=== PATIENT | male | born 1955 | race Caucasian/White ===

== ENCOUNTER → 2016-04-28 | Day surgery (SDC) | payer OTHER ==
[~2016-04-28] MED LIST: LIDOCAINE 2% 5 ML SDV ONE; MIDAZOLAM 2 MG/2 ML VIAL ONE; PROPOFOL 200 MG/20 ML VIAL ONE; PROPOFOL/EMULSION 500 MG/50 ML BOTTLE IV ONE
--- NOTE | 2016-04-28 21:33 | GPN ---
[f rep st] PROCEDURE NOTE DATE OF PROCEDURE: 04/28/2016 PROCEDURE: Esophagogastroduodenoscopy with biopsy, endoscopic ultrasound with fine-needle aspiration. INDICATION: The patient is a 60-year-old male who presents for evaluation of a enlarging gastric, subepithelial lesion. He presents for further evaluation and possible tissue acquisition. CONSENT: Risks, benefits, and alternatives of the procedure were discussed in great detail with the patient. Risk of infection, bleeding, perforation, and sedation were discussed. All questions were answered. Informed consent was obtained. MEDICATIONS: Propofol. Please see Anesthesiology record for details. ESTIMATED BLOOD LOSS: Insignificant. ESOPHAGOGASTROSCOPY EXAMINATION: The Olympus upper endoscope was introduced via the mouth and advanced to the esophagus. The proximal, mid, and distal esophagus were normal in appearance. The GE junction was noted at 45cms from the gums. The stomach was entered and closely examined including retroflexed views of the angularis, cardia and fundus. The patient had a small hiatal hernia. On the greater curvature at 49 cm from the incisors, a 2 x 2 cm subepithelial lesion was seen along the greater curvature/posterior wall. The mucosa covering the lesion was normal in appearance. It was noted to be hard on probing. 4cc of Luna ink was injected to the left, right and proximal to the lesion for tattoo marking. The mucosa in the antrum and body of the stomach was erythematous in a patchy distribution. Biopsies taken. The duodenal bulb and second portion of the duodenum were normal in appearance. ENDOSCOPIC ULTRASOUND EXAMINATION: The Olympus linear echoendoscope was introduced via the mouth and advanced to the second portion of duodenum. The pancreas was visualized from the uncinate process to the tail where the spleen was seen. No mass lesion was seen. The main pancreatic duct was not dilated and measured 2mms in the head. No dilated side branches were noted. The subepithelial lesion was carefully examined and it could not be determined what wall layer it arose from it. It measured approximately 22.3 x 22.1 mm and was heterogeneous. Most of the mass was isoechoic with part of the lesion being hypoechoic. Doppler was used to rule out intervening vessels. A transgastric pass was made with a [employer] 22-gauge FNB Acquire needle. Significant blood was noted without a visible core seen. Cytology was present. Another transgastric pass was made with a [employer] 25-gauge needle into the lesion. Cytology was present and it was thought more tissue was needed to be placed directly into CytoLyt. Another pass was made with a [employer] 22-gauge FNB needle for core biopsy. Visible tissue fragments were obtained. No suspicious periportal, peripancreatic, or perigastric nodes were appreciated. The common bile duct was seen and was without stone, stricture, or stenosis. IMPRESSION: 1. Subepithelial lesion in the stomach status post FNA and FNB. 2. Gastritis- status post biopsy. RECOMMENDATIONS: 1. Follow up on biopsy and FNA results. 2. Restart Lovenox and Coumadin today. 3. Clear liquid diet and advance. /[id number]/MODL MTDD
== END | disposition home or self-care (01) ==
LOC: FSGY 10:55
PROVIDERS: ATTEND Internal Medicine Gastroenterology
PROC: 0D968ZX Drainage of Stomach, Via Natural or Artificial Opening Endoscopic, Diagnostic (ICD-10-PCS; 2016-04-28)
PROC: 3E0G8KZ Introduction of Other Diagnostic Substance into Upper GI, Via Natural or Artificial Opening Endoscopic (ICD-10-PCS; 2016-04-28)
PROC: 0DB68ZX Excision of Stomach, Via Natural or Artificial Opening Endoscopic, Diagnostic (ICD-10-PCS; principal; 2016-04-28 13:00)
DX: K31.89 Other diseases of stomach and duodenum (principal); K29.70 Gastritis, unspecified, without bleeding; K44.9 Diaphragmatic hernia without obstruction or gangrene; Q23.1 Congenital insufficiency of aortic valve; Q25.1 Coarctation of aorta; I71.2 Thoracic aortic aneurysm, without rupture; I25.119 Atherosclerotic heart disease of native coronary artery with unspecified angina pectoris; F32.9 Major depressive disorder, single episode, unspecified; E78.5 Hyperlipidemia, unspecified; I10 Essential (primary) hypertension; G47.33 Obstructive sleep apnea (adult) (pediatric); Z86.718 Personal history of other venous thrombosis and embolism; Z86.73 Personal history of transient ischemic attack (TIA), and cerebral infarction without residual deficits; Z79.01 Long term (current) use of anticoagulants
CPT/HCPCS: J2250; J2704

== ENCOUNTER 2016-04-30 13:41 | Inpatient (IN) | payer OTHER ==
[2016-04-30 14:34] LABS: % IMMATURE GRANULYOCYTES 0.5 % (0.0-1.1); ABSOLUTE IMMATURE GRANULOCYTES 0.05 10^3/uL (0.00-0.10); ADD DIFF? NO; ADD MORPH? NO; ADD SCAN? NO; ATYPICAL LYMPHOCYTE FLAG 0 (0-99); FRAGMENT RBC FLAG 0 (0-99); HEMATOCRIT 39.2 % (40.0-51.0); HEMOGLOBIN 13.5 g/dL (13.7-17.5); LEFT SHIFT FLG 10 (0-99); LIPEMIA HEMOLYSIS FLAG 90 (0-99); MEAN CELL HEMOGLOBIN 30.8 pg (27.9-34.1); MEAN CELL HEMOGLOBIN CONCENTR. 34.4 g/dL (32.4-36.7); MEAN CELL VOLUME 89.5 fL (81.5-99.8); MEAN PLATELET VOLUME 10.4 fL (8.7-11.7); PLATELET CLUMPS FLAG 0 (0-99); PLATELET COUNT 252 10^3/uL (150-400); RED BLOOD CELL COUNT 4.38 10^6/uL (4.40-6.38); RED CELL DISTRIBUTION WIDTH 12.6 % (11.5-15.2)
[2016-04-30 14:42] LABS: APTT 26.1 SEC (23.0-38.0); INR 1.19 (0.83-1.16); PROTIME(PATIENT) 15.1 SEC (12.0-15.0)
[2016-04-30 14:51] LABS: ALANINE AMINOTRANSFERASE 159 IU/L (21-72); ALKALINE PHOSPHATASE 50 IU/L (38-126); ANION GAP 11 mEq/L (8-16); ASPARTATE AMINOTRANSFERASE 93 IU/L (17-59); BILIRUBIN,TOTAL 0.9 mg/dL (0.1-1.4); BILIRUBIN-CONJUGATED 0.3 mg/dL (0.0-0.5); BILIRUBIN-UNCONJUGATED 0.6 mg/dL (0.0-1.1); CALCIUM 8.7 mg/dL (8.5-10.4); CARBON DIOXIDE 22 mEq/l (22-31); CHLORIDE 110 mEq/L (97-110); CREATININE 0.9 mg/dL (0.7-1.3); GLOMERULAR FILTRATION RATE > 60; GLUCOSE 103 mg/dL (70-100); POTASSIUM 4.7 mEq/L (3.5-5.2); SODIUM 143 mEq/L (134-144)
--- NOTE | 2016-04-30 15:54 | EDPHY ---
H & P Stated Complaint: bx stomach nodule sunday /having gi bleeding Time Seen by Provider: 04/30/16 14:14 HPI/ROS: CHIEF COMPLAINT: GI bleeding following stomach biopsy HISTORY OF PRESENT ILLNESS: The patient presents to the ED with a 1 day history of melena and epigastric pain. The patient underwent an upper endoscopy 2 days ago for evaluation of a submucosal mass. During that time he had a biopsy. The patient reported this was complicated by some postprocedure bleeding. The patient eventually reported hemostasis was achieved he was discharged home. The patient reportedly developed melena over the past 12 hours. He also complains of some epigastric discomfort. The patient does have a history of a bicuspid aortic valve, coarctation of the aorta and coronary artery disease. The patient is currently on Coumadin which he stopped prior to his procedure and bridged with Lovenox. He resume his regular Coumadin dose last night. The patient denies fever, the patient complains of moderate pain in his epigastric area. He denies additional complaints. REVIEW OF SYSTEMS: A comprehensive 10 point review of systems is otherwise negative aside from elements mentioned in the history of present illness. Source: Patient Exam Limitations: No limitations - Personal History Current Tetanus/Diphtheria Vaccine: Yes Tetanus Vaccine Date: 03/2012 - Medical/Surgical History Hx Asthma: No Hx Chronic Respiratory Disease: No Hx Diabetes: No Hx Cardiac Disease: Yes Hx Renal Disease: No Hx Cirrhosis: No Hx Alcoholism: No Hx HIV/AIDS: No Hx Splenectomy or Spleen Trauma: No Other PMH: MEDICAL: HTN, HEART ATTACK X 1, cardiac catheterization and , STROKE MID BRAIN, CLINICAL DEPRESSION, hEART VALVE ISSUES, arthroscopic L knees surg 2000, sleep apnea w/ cpap;. distended L ventricle; AAA; cellulitis; - Social History Smoking Status: Never smoked - Physical Exam Exam: General Appearance: Alert, no distress Eyes: Pupils equal and round no pallor or injection ENT, Mouth: Mucous membranes moist Respiratory: There are no retractions, lungs are clear to auscultation Cardiovascular: Regular rate and rhythm Gastrointestinal: Minimal epigastric tenderness, no peritoneal signs Neurological: A&O, normal motor function, normal sensory exam, normal cranial nerves Skin: Warm and dry, no rashes Rectal: Melanotic stool noted Musculoskeletal: Neck is supple nontender Extremities: symmetrical, full range of motion Constitutional: Initial Vital Signs Temperature (C) 37 C 04/30/16 13:45 Heart Rate 86 04/30/16 13:45 Respiratory Rate 20 04/30/16 13:45 Blood Pressure 162/90 H 04/30/16 13:45 O2 Sat (%) 95 04/30/16 13:45 O2 Delivery Mode Room Air Allergies/Adverse Reactions: corn [Egnar] Allergy (Severe, Verified 04/30/16 13:43) Anaphylaxis flaxseed [Flaxseed] Allergy (Severe, Verified 04/30/16 13:43) Anaphylaxis almond oil Allergy (Verified 04/30/16 13:43) amitriptyline Allergy (Verified 04/30/16 13:43) Coconut Allergy (Verified 04/30/16 13:43) Anaphylaxis nebivolol HCl [From Bystolic] Allergy (Verified 04/30/16 13:43) pistachio nut Allergy (Verified 04/30/16 13:43) shrimp Allergy (Verified 04/30/16 13:43) tree nut [Nuts] Allergy (Verified 04/30/16 13:43) buckwheat Allergy (Severe, Uncoded 06/03/14 18:24) Anaphylaxis cherries Allergy (Severe, Uncoded 06/03/14 18:24) Anaphylaxis clams Allergy (Severe, Uncoded 06/03/14 18:24) Anaphylaxis crab Allergy (Severe, Uncoded 06/03/14 18:24) Anaphylaxis lobster Allergy (Severe, Uncoded 06/03/14 18:24) Anaphylaxis oysters Allergy (Severe, Uncoded 06/03/14 18:24) Anaphylaxis rice Allergy (Severe, Uncoded 06/03/14 18:24) Anaphylaxis chocolate Allergy (Intermediate, Uncoded 03/09/14 09:58) Other-Enter Comments flax Allergy (Mild, Uncoded 03/09/14 09:58) grapes Allergy (Mild, Uncoded 03/09/14 09:58) migraines pistachios Allergy (Uncoded 03/09/14 09:58) Home Medications: Medication Instructions Recorded Atorvastatin Calcium [Lipitor 80 80 mg PO DAILY AT 8PM 03/14/14 mg] Escitalopram Oxalate [Lexapro] 20 mg PO DAILY06 03/14/14 Carvedilol [Coreg (*)] 3.125 mg PO BIDMEAL #60 tab 03/15/14 Clopidogrel Bisulfate [Plavix (RX)] 75 mg PO DAILY #30 tab 03/15/14 Enoxaparin [Lovenox 120 MG (*)] 120 mg SQ BID 04/30/16 Nitroglycerin [Nitrostat 0.4 mg 0.4 mg SL Q5M PRN 04/30/16 (*)] Verapamil ER [Calan SR/ER 120MG 120 mg PO HS 04/30/16 (*)] Warfarin Sodium 10 mg PO SUTUWEFRSA@16 04/30/16 Warfarin Sodium 15 mg PO MOTH@16 04/30/16 Medical Decision Making - Diagnostics Imaging: Three-way abdominal x-ray: Negative for free air, images reviewed by myself. Formal interpretation by Radiology pending. ED Course/Re-evaluation: I reviewed the patient's past medical records. The patient presents to the ED with melena and pain following a GI procedure. I did consult with Dr. Rudy Haider off from Gastroenterology who recommends admission for serial exams and hematocrits. The patient received IV fluids in the emergency department. His initial hematocrit is noted to be 39. He is in no acute distress. The patient did undergo a three-way of the abdomen which demonstrates no evidence of free air. The patient was re-evaluated by myself at 4:30 p.m.. He continues to be hemodynamically stable. The patient was seen in consultation by Dr. Rudy Haider in the emergency department. He will be admitted and undergo endoscopy for further evaluation of his upper GI bleed. Differential Diagnosis: Differential diagnosis considered includes upper GI bleed, lower GI bleed, critical anemia, peritonitis, gastrointestinal perforation, intra-abdominal abscess - Data Points Laboratory Results: Laboratory Results 04/30/16 14:20 04/30/16 14:20 04/30/16 14:20 WBC 10.44 H 10^3/uL (3.80-9.50) RBC 4.38 L 10^6/uL (4.40-6.38) Hgb 13.5 L g/dL (13.7-17.5) Hct 39.2 L % (40.0-51.0) MCV 89.5 fL (81.5-99.8) MCH 30.8 pg (27.9-34.1) MCHC 34.4 g/dL (32.4-36.7) RDW 12.6 % (11.5-15.2) Plt Count 252 10^3/uL (150-400) MPV 10.4 fL (8.7-11.7) Neut % (Auto) 73.3 % (39.3-74.2) Lymph % (Auto) 18.9 % (15.0-45.0) Becker % (Auto) 6.4 % (4.5-13.0) Eos % (Auto) 0.3 L % (0.6-7.6) Baso % (Auto) 0.6 % (0.3-1.7) Nucleat RBC Rel Count 0.0 % (0.0-0.2) Absolute Neuts (auto) 7.66 H 10^3/uL (1.70-6.50) Absolute Lymphs (auto) 1.97 10^3/uL (1.00-3.00) Absolute Monos (auto) 0.67 10^3/uL (0.30-0.80) Absolute Eos (auto) 0.03 10^3/uL (0.03-0.40) Absolute Basos (auto) 0.06 10^3/uL (0.02-0.10) Absolute Nucleated RBC 0.00 10^3/uL (0-0.01) Immature Gran % 0.5 % (0.0-1.1) Immature Gran # 0.05 10^3/uL (0.00-0.10) PT 15.1 H SEC (12.0-15.0) INR 1.19 H (0.83-1.16) APTT 26.1 SEC (23.0-38.0) ABG Lactic Acid 1.7 H mmol/L (0.5-1.6) Sodium 143 mEq/L (134-144) Potassium 4.7 mEq/L (3.5-5.2) Chloride 110 mEq/L (97-110) Carbon Dioxide 22 mEq/l (22-31) Anion Gap 11 mEq/L (8-16) BUN 39 H mg/dL (7-23) Creatinine 0.9 mg/dL (0.7-1.3) Estimated GFR > 60 Glucose 103 H mg/dL (70-100) Calcium 8.7 mg/dL (8.5-10.4) Total Bilirubin 0.9 mg/dL (0.1-1.4) Conjugated Bilirubin 0.3 mg/dL (0.0-0.5) Unconjugated Bilirubin 0.6 mg/dL (0.0-1.1) AST 93 H IU/L (17-59) ALT 159 H IU/L (21-72) Alkaline Phosphatase 50 IU/L (38-126) Total Protein 7.0 g/dL (6.3-8.2) Albumin 4.0 g/dL (3.5-5.0) Departure - Departure Disposition: [facility] Inpatient Acute Clinical Impression: Upper GI bleed, Coronary artery disease, Bicuspid aortic valve Condition: Good
--- NOTE | 2016-04-30 16:11 | DX ---
Acute Abdominal Series, Four Views Total April 30, 2016 at 2:51 p.m. Clinical History: 60-year-old male concerned regarding potential intestinal bleeding following endosc opy. Rule out free air. Comparison Study: Abdominal radiography, dated June 03, 2014. Findings: PA UPRIGHT VIEW OF THE CHEST: Telemetry monitoring lead lines are present. The cardiac silhouette is notable for a left ventricular configuration. There is mild tortuosity of the descending thoracic aor ta. There is mild eventration of the right hemidiaphragm. A left-sided coronary artery stent is prese nt. There is no focal infiltrate or pleural effusion. There is some mild central perihilar bronchial thickening. ABDOMEN (SUPINE AND UPRIGHT VIEWS): There is a clip in the medial left upper quadrant of the abdomen. There is mild constipation. A small air-fluid level in the stomach is seen. There is no free subdiap hragmatic air. There is no mechanical bowel obstruction. Moderate obesity is noted. The osseous struc tures are age-appropriate. There are no abnormal calcific radiodensities. Impression: There is no evidence of pneumoperitoneum.
[2016-04-30] MEDS ORDERED: fentaNYL 100 MCG/2 ML INJ ONE (17:05)
[2016-04-30] MEDS ORDERED: MIDAZOLAM 2 MG/2 ML VIAL ONE (17:05)
[2016-04-30] MEDS ORDERED: PROPOFOL/EMULSION 500 MG/50 ML BOTTLE IV ONE (17:06)
[2016-04-30] MEDS ORDERED: NS 1,000 ML IV ONE (17:21)
[2016-04-30] MEDS ORDERED: ONDANSETRON DISINTEGRATING 4 MG TAB PO PRN (17:21)
[2016-04-30] MEDS ORDERED: ACETAMINOPHEN 325 MG TAB PO PRN (17:21)
[2016-04-30] MEDS ORDERED: ONDANSETRON 4 MG/2 ML VIAL IVP PRN (17:21)
[2016-04-30] MEDS ORDERED: NS 1,000 ML IV SCH (17:30)
[2016-04-30] MEDS: CARVEDILOL 3.125 MG TAB PO SCH (19:21)
[2016-04-30] MEDS: ATORVASTATIN CALCIUM 40 MG TAB PO SCH (19:21)
[2016-04-30] MEDS: PANTOPRAZOLE SODIUM 80 MG in NS 100 ML IV SCH (19:31)
[2016-04-30] MEDS: oxyCODONE IR 5 MG TAB PO PRN ×2 (19:32→22:45)
--- NOTE | 2016-04-30 19:48 | GHP ---
[f rep st] HISTORY AND PHYSICAL DATE OF ADMISSION: 04/30/2016 CHIEF COMPLAINT: Melena. HISTORY OF PRESENT ILLNESS: This is a 60-year-old male who had a gastric biopsy done on Sunday. Linda arently, he has had a few gastric nodules that have been followed, but one of them has been growing a nd thus, a biopsy was done. He does have a history of a bicuspid aortic valve, as well as aortic coa rctation and a thoracic aortic aneurysm. He has had previous strokes, presumably due to that. He al so has a PFO and perhaps had paradoxical embolisms. For this reason, he is on anticoagulation, and donaldo saxena was bridged with Lovenox. He was restarted on his Lovenox the day after the procedure, but today donadlo saxena has been having melena. He also admits to dizziness and dyspnea with exertion on climbing up stair s. He denies any chest pain. He does have a little bit of abdominal discomfort as well. REVIEW OF SYSTEMS: A 10-point review of systems was obtained and other than stated was negative. PAST MEDICAL HISTORY: 1. 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 2. Bicuspid aortic valve. 3. Coronary artery disease, status post stenting. 4. Aortic coarctation. 5. Some mild aortic insufficiency. 6. ASD. 7. Hypertension. 8. Hyperlipidemia. 9. Obstructive sleep apnea. 10. Depression. MEDICATIONS: Reviewed. SOCIAL HISTORY: No smoking or excessive alcohol. He works as a housing contractor and is . FAMILY HISTORY: Does have a premature family history of coronary heart disease. PHYSICAL EXAMINATION: VITAL SIGNS: Afebrile. Blood pressure is 133/87, heart rate 76, and oxygen s aturation 96% on room air. GENERAL: The patient is well developed and in no apparent distress. BETINA NT: Nonicteric sclerae. Extraocular movements intact. Moist mucous membranes. NECK: Supple. No thyromegaly. LUNGS: Good effort. Clear to auscultation bilaterally. CARDIOVASCULAR: Regular rate and rhythm. 2/6 systolic murmur heard best at the right upper sternal border. ABDOMEN: Positive b owel sounds. Some mild epigastric tenderness. No rebound or guarding. EXTREMITIES: No clubbing, c yanosis, or edema. SKIN: Without rash. Warm, dry, intact. NEUROLOGIC: Alert and oriented x3. Mov ing all 4 extremities equally. PSYCH: Normal mood and affect. LABORATORY DATA: White blood cell count is 10, hemoglobin 13, and platelets are 252. INR is 1.2. L actic acid is slightly elevated at 1.7. Sodium 143, potassium 4.7, BUN elevated at 39, creatinine 0. 9. AST elevated at 93 and ALT at 159. These were normal a year ago. Abdominal x-ray does not show any free air. ASSESSMENT: This is a 60-year-old male presenting with an upper gastrointestinal bleed after gastric biopsy. PLAN: 1. Upper GI bleed. He has already been scoped by Dr. Haider. There is oozing and hematoma at the si te. We would probably like to keep him off anticoagulation as long as we can. However, Cardiology f eels strongly that he probably needs anticoagulation to prevent strokes. I do believe that the risk- to-benefit ratio favors staying off anticoagulation for the next 24-48 hours. However, will discuss with his primary supervisor [employer], Dr. Cox, in the morning. We will check H and H's, and continue the Protonix drip per Gastroenterology's recommendations. 2. Anemia secondary to acute blood loss. I do expect his hemoglobin to drop with hydration, as he i s having symptoms of dizziness and an elevated BUN. We will continue to monitor. 3. History of CVA, thought to be due to paradoxical emboli or to his congenital heart disease. As a doc, hold anticoagulation today and discuss with Cardiology in the morning. 4. Elevated liver function tests. This was not apparent on his labs about a year ago. He had an ab dominal ultrasound about a year ago which just showed some minor fatty liver. Considering that he do es have this gastric nodule that is concerning, in which carcinoma needs to be ruled out. We will go ahead and get an abdominal CAT scan to look for metastases. 5. Hypertension. 6. Obstructive sleep apnea. He wears oxygen at night. 7. History of coronary artery disease, status post stenting. The patient is not having any anginal symptoms. DISPOSITION: The patient will be admitted under full admission status. His case was discussed with Gastroenterology as well as the ER physician. Old records reviewed and summarized in the HPI. /[id number]/MODL
--- NOTE | 2016-04-30 20:13 | GCON ---
[f rep st] CONSULTATION GASTROENTEROLOGY CONSULTATION DATE OF CONSULTATION: 04/30/2016 REFERRING PHYSICIAN: Chelita Paulino MD CHIEF COMPLAINT: Melena. Dear Dr. Paulino: Thank you very kindly for asking me to evaluate your patient for gastrointestinal bleeding. He is a somewhat complicated 60-year-old gentleman who has been anticoagulated long-term for a dilate d left atrium, with what sounds like previous thromboembolic stroke events, who underwent an upper en doscopy with endoscopic ultrasound and fine-needle aspiration of a subepithelial lesion on Sunday. H e had been referred for the procedure by Dr. Dami Hernandez who was surveying the subepithelial lesion an d felt it was growing in size and therefore referred him for the endoscopic ultrasound. There was so me minor bleeding at the time of the procedure which was treated with Endoclip therapy. Postprocedur e, the patient went home on Sunday feeling quite well without symptoms, but this morning awoke with e pigastric and periumbilical discomfort that was moderate, along with nausea, dizziness, and melena. He describes 4 episodes of melena since this morning. He has been on Lovenox injections and Coumadin which he resumed yesterday. He denies any hematemesis. Again, he has been somewhat dizzy and light headed. He denies any chest pain, but has felt somewhat short of breath. In the emergency room, his INR was 1.19 with an initial hematocrit of 39.2, but his BUN is elevated at 39. He is being admitte d for further evaluation and management that I am asked to assist with triage and treatment of his bl eeding problem. PAST MEDICAL HISTORY: Significant for coronary artery disease, dilated left atrium, abdominal aortic aneurysm, mitral valve prolapse, history of stroke, hypertension, depression, history of cellulitis, sleep apnea with requirement for CPAP, chronic anticoagulation due to a history of thromboembolic st roke I believe related to the dilated left atrium and possibly atrial fibrillation. He has had a sub epithelial lesion in the stomach which was sampled on Sunday. Hyperlipidemia. PAST SURGICAL HISTORY: Negative for abdominal surgery. He has had coronary artery catheterization w ith stenting. SOCIAL HISTORY: He is . No tobacco. Rare alcohol. MEDICATIONS: Include Lipitor 80 mg daily, Lexapro 20 mg daily, carvedilol 3.125 mg p.o. b.i.d., clop idogrel 75 mg p.o. daily, warfarin 5 mg p.o. daily, verapamil once daily, Lovenox injections (he has not taken his Lovenox today). ALLERGIES: Multiple food allergies, but no medication allergies. FAMILY HISTORY: Negative for bleeding disorders or peptic ulcer disease. No family history of stoma ch cancer. There is a family history of coronary disease. REVIEW OF SYSTEMS: CONSTITUTIONAL: Denies fever, chills, or weight loss. He has lost his appetite as of today. Does not feel like eating much is the way he describes it. HEENT: Feel dizzy, somewha t lightheaded, no visual disturbance, no headache, no difficulty swallowing, no epistaxis, no trouble swallowing, no sore throat. PULMONARY: He is short of breath at rest and with exertion. He has shaver d more difficulty laying flat. CARDIOVASCULAR: He has had dizziness and near syncope. No palpitati ons, no chest pain. GASTROINTESTINAL: Per the HPI and otherwise negative. He denies any hematemesi s or constipation. He continues to have epigastric and left-sided abdominal pain that is mild to mod erate and is worse when he ambulates or moves around. RHEUMATOLOGIC: Negative for joint pain or swe lling. DERMATOLOGIC: No rash or jaundice. PSYCHIATRIC: Negative for anxiety or depression. GENIT OURINARY: No flank pain, dysuria or hematuria. ENDOCRINE: No heat or cold intolerance. PHYSICAL EXAM: VITAL SIGNS: Blood pressure is 162/90, his heart rate is 86, respirations are 20, ox ygenation 95% on room air, temperature 37. CONSTITUTIONAL: In no acute distress. HEENT: Normoceph alic, atraumatic. Oropharynx clear without blood. Nares are clear without blood. NECK: No jugular venous distention or carotid bruits. No thyromegaly or cervical adenopathy. Neck is supple. LUNGS : Clear to auscultation bilaterally with good air exchange. CARDIOVASCULAR: Regular rate and rhyth m. Occasional ectopy. Systolic murmur 2/6 at the left sternal border. ABDOMEN: Obese, soft, nonte nder, nondistended. Normal bowel sounds. No hernia. No palpable mass or lesion. No bruit is heard . EXTREMITIES: Without joint deformity. Normal gait and station. No palmar erythema or clubbing. SKIN: Warm and dry without jaundice, rash, or lesion. NEUROLOGIC: Normal mood and affect. He move s all extremities normally. His speech is normal. LABORATORY DATA: Database includes: 1. Sodium 143, potassium 4.7, chloride 110 bicarbonate 22, BUN 39, creatinine 0.9, glucose 103. 2. AST is 93, ALT is 159, total bilirubin 0.9 with an alkaline phosphatase of 50. Calcium is 8.7. 3. INR 1.19 with a PT of 15.1 and a PTT of 26.1. 4. White blood count 10.4, hematocrit 39.2, platelets are 252. 5. A 2-view of the abdomen reviewed by me and Dr. Mathew in the emergency room was negative for intr aperitoneal air. IMPRESSION: 1. Abdominal pain, epigastric and left upper quadrant. 2. Nausea. 3. Melena. 4. Coronary artery disease with an enlarged left atrium and history of chronic anticoagulation on Pl avix, warfarin, and Lovenox. 5. Mild coagulopathy. 6. Sleep apnea. RECOMMENDATIONS: 1. NPO. 2. Monitor hematocrit q.4 hours. 3. Hold Lovenox, Plavix, and Coumadin at this time. 4. Anesthesia consultation for emergent upper endoscopy to triage the bleeding. His BUN is elevated . He has had 4 episodes of melena. He has been dizzy and lightheaded. While his vital signs are re assuring and his initial hematocrit is 39, he does have a need for resuming anticoagulation as soon a s possible, and I need to triage the elements of this fine-needle aspirate and its bleeding complicat ions to ensure that it is stable enough to make recommendations, not only about the anticoagulation, but to try to treat it if needed. 5. He will need a monitored care bed such as an intermediate care bed or, minimally, telemetry. 6. Further recommendations to follow his endoscopy. /[id number]/MODL
[2016-04-30] MEDS ORDERED: IOPAMIDOL (ISOVUE 370) 100 ML BTL IV ONE (21:44)
--- NOTE | 2016-04-30 21:44 | GPN ---
[f rep st] PROCEDURE NOTE DATE OF PROCEDURE: 04/30/2016 PROCEDURE: Esophagogastroduodenoscopy with control of bleeding. INDICATIONS: 1. Melena. 2. Abdominal pain. CONSENT: Procedure consent was obtained from Mr. Segura after the risks and benefits of endoscopy an d anesthesia were discussed in detail. All questions were answered and informed consent was obtaine d from the patient who is competent to make his own medical decisions. COMPLICATIONS: None. ESTIMATED BLOOD LOSS: Minimal. ENDOSCOPY STAFF: Carolann. ANESTHESIA: Anesthesiology provided by Dr. Harris for propofol monitored anesthesia care. DESCRIPTION OF PROCEDURE: The patient was placed into the left lateral decubitus position. Monitori ng was provided by anesthesia protocol. The Olympus endoscope was placed into the oropharynx which w as normal. The esophagus was intubated under direct visualization and ultimately the endoscope was a dvanced into the stomach which revealed a significant amount of blood and clot. There was a subepith elial lesion on the lesser curve of the gastric body that was approximately 4 x 5 cm in size. There was a single Endoclip at the site of the previous biopsy with bleeding. The bleeding was best charac terized by an ooze that was continuous from the Endoclip site. There was 1 additional fine-needle bi opsy site above the Endoclip which was also bleeding and characterized by a slow ooze. The bleeding sites at the biopsy of the subepithelial lesion were endo-clipped with 3 additional endoscopy clips. The lesion exhibited much better hemostasis after the clips were placed, but there was still a very small ooze from the clip sites. The lesion with a total now of 4 Endoclips at the biopsy sites was washed and washed aggressively for about a 5 minute interval of time. The oozing was substantially diminished and with further washing of the lesion no more oozing could be seen. The remaining stomach was aspirated of any blood and ex amined and there was no other bleeding site. The antrum was normal. The endoscope was advanced into the second portion of the duodenum which was also normal. The stomach was decompressed and the endo scope removed. The patient tolerated the procedure well. IMPRESSION: 1. Normal esophagus. 2. A 3 x 5 cm subepithelial lesion in the lesser curve of the gastric body with active bleeding at t he fine-needle aspirate sites. A single Endoclip was seen at one of the sites, but bleeding was cont inuing. An additional 3 Endoclips were placed with better hemostasis. There was no bleeding at the end of the procedure. The remaining stomach was normal. 3. The duodenum was normal to the second portion. RECOMMENDATIONS: 1. Return to ICU. 2. Continuous PPI infusion 8 mg/hr. 3. Monitor hematocrit q.6 hours. 4. I would not resume anticoagulation at this time as I believe this is a high-risk lesion. 5. I will discuss with the family and General Surgery about possibly removing this lesion. I will f ollow up on the fine-needle aspirate biopsy samples, and if these are nondiagnostic, I will discuss w ith the family whether or not a surgery to remove the lesion could be more definitive, both in preven ting recurrent or ongoing bleeding, and also to give a better definitive diagnosis of the problem. 6. Diet can be clear liquids only. 7. Further recommendations to follow his clinical course. /[id number]/MODL
--- NOTE | 2016-04-30 22:56 | CT ---
CT Scan of the Abdomen and Pelvis (With Contrast) at 2229 hours History: Gastric mass, elevated liver function tests Technique: Axial computed tomographic images of the abdomen and pelvis were obtained with the unevent ful intravenous administration of 100 mL Isovue-300 contrast. Additional oral contrast. Dose reductio n techniques were utilized. CT Abdomen Findings: Lung bases: No pleural effusion. In the region of the greater curvature of the gastric body region there is a 4 x 3 cm polypoid mass n oted. No evidence of surrounding upper abdominal significant lymphadenopathy. Liver: No focal hepatic masses were hepatomegaly. Biliary system: No obstruction. Spleen: Normal. Pancreas: Normal. Adrenals: Normal. Kidneys: No obstruction or solid masses.. Extending from the posterior cortex of the left kidney ther e is a 10.3 x 7.6 cm simple cyst. Bilateral perinephric stranding. Abdominal Aorta: Left chronic aorta without aneurysm. No significant retroperitoneal adenopathy.. No bowel obstruction, ascites, or significant retroperitoneal lymphadenopathy. Oral contrast in the stomach, small bowel and colon without obstruction. CT Pelvis Findings: No pelvic fluid collections or significant adenopathy. No distal bowel obstructio n. Impression: 1. Gastric antrum mucosal mass measuring 4 x 3 cm. 2. No definite evidence of abdominal or pelvic metastatic disease or hepatic masses. 3. Homogeneous liver without masses. 4. Atherosclerotic aorta without aneurysm. 5. Left renal cyst without urinary tract obstruction.
[2016-05-01] MEDS: oxyCODONE IR 5 MG TAB PO PRN ×4 (02:21→21:20)
[2016-05-01] MEDS: PANTOPRAZOLE SODIUM 80 MG in NS 100 ML IV SCH ×2 (06:08→16:39)
[2016-05-01 06:15] LABS: % IMMATURE GRANULYOCYTES 0.4 % (0.0-1.1); ABSOLUTE IMMATURE GRANULOCYTES 0.04 10^3/uL (0.00-0.10); ADD DIFF? NO; ADD MORPH? NO; ADD SCAN? NO; ATYPICAL LYMPHOCYTE FLAG 20 (0-99); FRAGMENT RBC FLAG 0 (0-99); HEMATOCRIT 31.3 % (40.0-51.0); HEMOGLOBIN 10.5 g/dL (13.7-17.5); LEFT SHIFT FLG 20 (0-99); LIPEMIA HEMOLYSIS FLAG 80 (0-99); MEAN CELL HEMOGLOBIN 30.5 pg (27.9-34.1); MEAN CELL HEMOGLOBIN CONCENTR. 33.5 g/dL (32.4-36.7); MEAN PLATELET VOLUME 10.8 fL (8.7-11.7); PLATELET CLUMPS FLAG 0 (0-99); PLATELET COUNT 183 10^3/uL (150-400); RED BLOOD CELL COUNT 3.44 10^6/uL (4.40-6.38); RED CELL DISTRIBUTION WIDTH 12.8 % (11.5-15.2)
[2016-05-01] MEDS: ESCITALOPRAM OXALATE 10 MG TAB PO SCH ×2 (06:24→08:28)
[2016-05-01 06:30] LABS: ALANINE AMINOTRANSFERASE 216 IU/L (21-72); ALBUMIN 3.3 g/dL (3.5-5.0); ANION GAP 9 mEq/L (8-16); ASPARTATE AMINOTRANSFERASE 152 IU/L (17-59); BILIRUBIN,TOTAL 0.8 mg/dL (0.1-1.4); CALCIUM 7.9 mg/dL (8.5-10.4); CARBON DIOXIDE 21 mEq/l (22-31); CHLORIDE 110 mEq/L (97-110); CREATININE 0.9 mg/dL (0.7-1.3); GLOMERULAR FILTRATION RATE > 60; GLUCOSE 95 mg/dL (70-100); POTASSIUM 4.2 mEq/L (3.5-5.2); SODIUM 140 mEq/L (134-144); TOTAL PROTEIN 5.7 g/dL (6.3-8.2)
[2016-05-01] MEDS: CARVEDILOL 3.125 MG TAB PO SCH ×2 (08:24→18:18)
--- NOTE | 2016-05-01 12:50 | SOAPPROG ---
SOAP Progress Note Assessment/Plan: Assessment: Patient s/p FNA/Core Bx of subepithelial gastric body nodule. Patient had been on anti-coagulation for history of PFO, valvular heart disease and prior stroke. Had post procedure bleeding. S/p endoscopic therapy yesterday with clips Plan: 1. Serial H and H 2. Path should be back today 3. Would keep on heparin at present due to risk of bleeding. Patient may require surgical resection of gastric lesion. 05/01/16 12:45 Subjective: CC: GI Bleed s/p endoscopic therapy, no signs of bleeding. Hct stable Objective: Vital Signs Temp Pulse Resp BP Pulse Ox 36.8 C 61 14 129/79 H 92 05/01/16 11:36 05/01/16 11:36 05/01/16 11:36 05/01/16 11:36 05/01/16 11:36 Laboratory Results 05/01/16 04:20 05/01/16 04:20 04/30/16 05/01/16 05/02/16 05:59 05:59 05:59 Intake Total 250 Output Total 0 Balance 250 PT 15.1 SEC (12.0-15.0) H 04/30/16 14:20 INR 1.19 (0.83-1.16) H 04/30/16 14:20 Generic Name Dose Route Start Last Admin Trade Name Freq PRN Reason Stop Dose Admin Acetaminophen 650 mg 04/30/16 17:21 Tylenol PO 10/27/16 17:20 Q4HRS PRN Pain, Mild/Fever, Can Take PO Atorvastatin Calcium 80 mg 04/30/16 20:00 04/30/16 19:21 Lipitor PO 10/27/16 19:59 Not Given DAILY@20 MARK Carvedilol 3.125 mg 04/30/16 18:00 05/01/16 08:24 Coreg PO 10/27/16 17:59 3.125 mg BIDMEAL MARK Administration Escitalopram Oxalate 20 mg 05/01/16 06:00 05/01/16 08:28 Lexapro PO 10/28/16 05:59 20 mg DAILY@06 MARK Administration Sodium Chloride 1,000 mls @ 150 mls/hr 04/30/16 17:30 05/01/16 02:21 Ns IV 05/02/16 00:09 1,000 mls CONT MARK Administration Pantoprazole Sodium 80 mg/ 100 mls @ 10 mls/hr 04/30/16 19:00 05/01/16 06:08 Sodium Chloride IV 10/27/16 18:59 100 mls Q10H MARK Administration Ondansetron HCl 4 mg 04/30/16 17:21 Zofran IVP 10/27/16 17:20 Q4HRS PRN Nausea/Vomiting, Can't Take PO Ondansetron HCl 4 mg 04/30/16 17:21 Zofran Odt PO 10/27/16 17:20 Q4HRS PRN Nausea/Vomiting, Use 1st Oxycodone HCl 5 - 10 mg 04/30/16 19:22 05/01/16 08:17 Oxycodone Ir PO 05/10/16 19:21 10 mg Q4HRS PRN Administration Pain, Severe Able to Take PO Discontinued Medications Generic Name Dose Route Start Last Admin Trade Name Freq PRN Reason Stop Dose Admin Fentanyl Confirm 04/30/16 17:05 Sublimaze Administered 04/30/16 17:06 Dose 100 mcg .ROUTE .STK-MED ONE Sodium Chloride 1,000 mls @ 3,000 mls/hr 04/30/16 17:21 04/30/16 18:42 Ns IV 04/30/16 17:40 1,000 mls ONCE ONE Administration Iopamidol Confirm 04/30/16 21:44 Isovue-370 Administered 04/30/16 21:45 Dose 100 ml IV .STK-MED ONE Midazolam HCl Confirm 04/30/16 17:05 Versed Administered 04/30/16 17:06 Dose 2 mg .ROUTE .STK-MED ONE Propofol Confirm 04/30/16 17:06 Diprivan 10 Mg/Ml (Premix) Administered 04/30/16 17:07 Dose 500 mg IV .STK-MED ONE Physical Exam - Physical Exam General Appearance: alert, no apparent distress Respiratory: lungs clear, normal breath sounds Cardiac/Chest: regular rate, rhythm Abdomen: normal bowel sounds, non-tender, soft Skin: normal color, warm/dry Neuro/Psych: no motor/sensory deficits, alert, normal mood/affect ICD10 Worksheet Patient Problems: Problems Problem Status Diagnosed Cerebral infarction Active Bicuspid aortic valve Acute Coronary artery disease Acute Upper GI bleed Acute Depression - Depressive disorder Active
[2016-05-01 13:12] LABS: HEMATOCRIT 29.3 % (40.0-51.0)
--- NOTE | 2016-05-01 13:26 | HOSPPROG ---
Hospitalist Progress Note Assessment/Plan: 60-year-old with a history of bicuspid aortic valve, aortic coarctation and ASD. He has had previous strokes and is on chronic anticoagulation. He also has a history of coronary artery disease and stents and is on Plavix. Who comes in with melena and recently had biopsies of his stomach. Repeat endoscopy did show oozing at the site of the biopsy and likely cause of his GI bleeding. Overnight he has not had no further melena and his hemoglobin has dropped a little bit but appears fairly stable # upper GI bleed likely secondary to biopsy site and anticoagulation. Patient high risk for strokes. Discussed in detail with Dr. Nazario Coker * Repeat hemoglobin now if stable will start IV heparin and monitor overnight on anticoagulation for further bleeding * Transition to twice daily p.o. Protonix * Follow up on biopsy results, if malignant would consider surgery consultation. # history of CVA and at high risk off anticoagulation. See above will start IV heparin prior to turns champagne back to Coumadin and Lovenox will need to monitor overnight due to high risk of repeat bleed * Follow serial H&H # history of coronary artery disease. Plavix on hold, if stable on heparin can likely be back on Plavix at the time of discharge. # obstructive sleep apnea on CPAP # hypertension # dyslipidemia Subjective: Patient new to me, chart reviewed discussed with GI. Patient continues to have pain in his abdominal area but has not had any further melena or blood in his stool Objective: Vital Signs Temp Pulse Resp BP Pulse Ox 36.8 C 61 14 129/79 H 92 05/01/16 11:36 05/01/16 11:36 05/01/16 11:36 05/01/16 11:36 05/01/16 11:36 Laboratory Results 05/01/16 12:55 05/01/16 04:20 04/30/16 05/01/16 05/02/16 05:59 05:59 05:59 Intake Total 250 Output Total 0 Balance 250 PT 15.1 SEC (12.0-15.0) H 04/30/16 14:20 INR 1.19 (0.83-1.16) H 04/30/16 14:20 - Physical Exam Constitutional: obese, uncomfortable Eyes: PERRL Ears, Nose, Mouth, Throat: moist mucous membranes Cardiovascular: regular rate and rhythym Respiratory: no respiratory distress, no rales or rhonchi, clear to auscultation Gastrointestinal: normoactive bowel sounds, tenderness (Left upper quadrant), guarding Genitourinary: no bladder fullness Skin: warm, normal color Musculoskeletal: no joint effusions Neurologic: AAOx3, No facial droop Psychiatric: interacting appropriately, not anxious, not encephalopathic ICD10 Worksheet Patient Problems: Problems Problem Status Diagnosed Cerebral infarction Active Bicuspid aortic valve Acute Coronary artery disease Acute Upper GI bleed Acute Depression - Depressive disorder Active
[2016-05-01] MEDS ORDERED: HEPARIN 10,000 UNIT/10 ML MDV IVP PRN (15:13)
[2016-05-01] MEDS: HEPARIN/DEXTROSE 500 ML IV SCH (15:57)
[2016-05-01] MEDS: PANTOPRAZOLE SODIUM 40 MG TAB PO SCH (16:52)
[2016-05-01] MEDS: ATORVASTATIN CALCIUM 40 MG TAB PO SCH (20:18)
[2016-05-01 20:30] LABS: ALKALINE PHOSPHATASE 42 IU/L (38-126)
[2016-05-01] MEDS ORDERED: HYDROmorphONE/DILAUDID 1 MG/ML SYR IVP PRN (20:56)
[2016-05-01 23:30] LABS: HEMATOCRIT 27.3 % (40.0-51.0); HEMOGLOBIN 9.4 g/dL (13.7-17.5)
[2016-05-02] MEDS: oxyCODONE IR 5 MG TAB PO PRN ×2 (01:25→04:34)
[2016-05-02] MEDS: HEPARIN/DEXTROSE 500 ML IV SCH (04:34)
[2016-05-02 06:11] LABS: HEMATOCRIT 27.7 % (40.0-51.0); HEMOGLOBIN 9.3 g/dL (13.7-17.5)
[2016-05-02] MEDS ORDERED: ESCITALOPRAM OXALATE 10 MG TAB PO SCH (08:00)
[2016-05-02] MEDS: CARVEDILOL 3.125 MG TAB PO SCH (08:25)
[2016-05-02] MEDS: PANTOPRAZOLE SODIUM 40 MG TAB PO SCH (08:25)
[2016-05-02 11:31] VITALS: BP 120/74; PULSE 65; RESP 20; TEMP 98.6; O2SAT 93
--- NOTE | 2016-05-02 11:54 | HOSPPROG ---
Hospitalist Progress Note Assessment/Plan: 60-year-old with a history of bicuspid aortic valve, aortic coarctation and ASD. He has had previous strokes and is on chronic anticoagulation. He also has a history of coronary artery disease and stents and is on Plavix. Who comes in with melena and recently had biopsies of his stomach. Repeat endoscopy did show oozing at the site of the biopsy and likely cause of his GI bleeding. He had some black stool this am, but no fresh blood. abdo cramping with gas # upper GI bleed likely secondary to biopsy site and anticoagulation. Patient high risk for strokes. h/h stable overnight * continue bid PPI * transition from heparin to lovenox at dc * will defer to GI when ok to dc * surgical path ok, cytology pending # history of CVA and at high risk off anticoagulation. See above will start IV heparin prior to turns champagne back to Coumadin and Lovenox will need to monitor overnight due to high risk of repeat bleed * Follow serial H&H # history of coronary artery disease. Plavix on hold, if stable on heparin can likely be back on Plavix at the time of discharge. # obstructive sleep apnea on CPAP # hypertension # dyslipidemia Subjective: Abdominal pain slightly improved. Still gets a lot of cramping. Had a black stool this morning Objective: Vital Signs Temp Pulse Resp BP Pulse Ox 37.0 C 65 20 120/74 93 05/02/16 11:29 05/02/16 11:29 05/02/16 11:29 05/02/16 11:29 05/02/16 11:29 Laboratory Results 05/02/16 04:35 05/01/16 04:20 05/01/16 05/02/16 05/03/16 05:59 05:59 05:59 Intake Total 250 1550 Output Total 0 250 Balance 250 1300 PT 15.1 SEC (12.0-15.0) H 04/30/16 14:20 INR 1.19 (0.83-1.16) H 04/30/16 14:20 - Physical Exam Constitutional: obese, uncomfortable Eyes: PERRL, anicteric sclera, EOMI Ears, Nose, Mouth, Throat: moist mucous membranes, hearing normal, ears appear normal Cardiovascular: regular rate and rhythym, no murmur, rub, or gallop, systolic murmur Respiratory: no respiratory distress, no rales or rhonchi ICD10 Worksheet Patient Problems: Problems Problem Status Diagnosed Cerebral infarction Active Bicuspid aortic valve Acute Coronary artery disease Acute Upper GI bleed Acute Depression - Depressive disorder Active
[2016-05-02 13:16] LABS: HEMATOCRIT 28.2 % (40.0-51.0); HEMOGLOBIN 9.7 g/dL (13.7-17.5)
--- NOTE | 2016-05-02 14:36 | GDS ---
[f rep st] DISCHARGE SUMMARY DIAGNOSES: 1. Upper gastrointestinal bleed secondary oozing at biopsy site. 2. Recent abdominal mass, biopsies pending. 3. History of cerebrovascular accident, high risk off anticoagulation. 4. History of coronary artery disease, on Plavix. 5. Obstructive sleep apnea, on CPAP. 6. Hypertension. 7. Dyslipidemia. 8. Elevated liver function tests. CONSULTATIONS: GI, Dr. Rudy Haider. PROCEDURES DONE: Upper endoscopy and abdominal CT, showing 3 x 5 cm subepithelial lesion in the lesser curve of the gastric body with active bleeding at the fine-needle aspiration site. Abdominal CT showing gastric mucosa mass, measuring 4 x 3 cm. No definite evidence of abdominal or pelvic metastatic disease or hepatic masses. HOSPITAL COURSE: The patient is a 60-year-old admitted with melena. He has a history significant for an abdominal wall mass. He underwent biopsies on Sunday. He is under chronic anticoagulation with Coumadin as well as Plavix for coronary artery disease and history of strokes. He was readmitted over the weekend with melena. He underwent second endoscopy with the above findings, which revealed likely cause of his bleeding was oozing from the aspirate site. This was clipped, and he was replaced on the anticoagulation and monitored for 24 hours while on full anticoagulation. His hemoglobin remained stable. He continued to have some melena, and this is likely old. Other findings include elevated LFTs. A CT scan was done, which was unremarkable for metastatic disease. He can have ongoing followup for his LFTs by Dr. Waddell. CONDITION ON DISCHARGE: Fair. Vital signs are stable. Hemoglobin 9.4. He has been on full anticoagulation, and will transition him back to Lovenox and Coumadin at the time of discharge. FOLLOWUP: He should follow up with the [facility] on Sunday and Sunday, to discontinue the Lovenox as soon as his INR is therapeutic. He will follow up with Dr. Waddell once his biopsies are back. Follow up with Dr. Cox as needed. MEDICATIONS ON DISCHARGE: Please see medication reconciliation form. Total time spent with the patient the day of discharge and coordination of care was 35 minutes. /[id number]/MODL MTDD
== END 2016-05-02 15:18 | disposition home or self-care (01) | DRG 909 ==
LOC: OBSVTOIN 15:54 → F3E 18:22
PROVIDERS: ADMIT Internal Medicine; ATTEND Internal Medicine
DX: K91.840 Postprocedural hemorrhage of a digestive system organ or structure following a digestive system procedure (principal); I25.10 Atherosclerotic heart disease of native coronary artery without angina pectoris; I10 Essential (primary) hypertension; G47.33 Obstructive sleep apnea (adult) (pediatric); E78.5 Hyperlipidemia, unspecified; R94.5 Abnormal results of liver function studies; Z86.73 Personal history of transient ischemic attack (TIA), and cerebral infarction without residual deficits; Z79.01 Long term (current) use of anticoagulants
CPT/HCPCS: 85520-90; J1170; J1644; J2250; J2704; J3010; Q9967

== ENCOUNTER 2016-06-20 06:33 | Inpatient (IN) | payer OTHER ==
[~2016-06-20 06:33] MED LIST changes: +LIDOCAINE 1% 5 ML SDV ID PRN; +LIDOCAINE 1% 5 ML SDV ONE; -LIDOCAINE 2% 5 ML SDV ONE; +LR 1,000 ML IV ONE; -MIDAZOLAM 2 MG/2 ML VIAL ONE; -PROPOFOL 200 MG/20 ML VIAL ONE; -PROPOFOL/EMULSION 500 MG/50 ML BOTTLE IV ONE; +cefOXitin SODIUM 1 GM in D5W 50 ML IV ONE
[2016-06-20] MEDS ORDERED: SKIN ADHESIVE (DERMABOND) 1 EACH TP ONE (07:09)
[2016-06-20] MEDS ORDERED: BUPIVACAINE 0.5% 30 ML SDV ONE (07:09)
[2016-06-20 07:25] LABS: % IMMATURE GRANULYOCYTES 0.3 % (0.0-1.1); ABSOLUTE IMMATURE GRANULOCYTES 0.02 10^3/uL (0.00-0.10); ADD DIFF? NO; ADD MORPH? NO; ADD SCAN? NO; ATYPICAL LYMPHOCYTE FLAG 0 (0-99); FRAGMENT RBC FLAG 0 (0-99); HEMATOCRIT 41.2 % (40.0-51.0); HEMOGLOBIN 13.9 g/dL (13.7-17.5); LEFT SHIFT FLG 0 (0-99); LIPEMIA HEMOLYSIS FLAG 80 (0-99); MEAN CELL HEMOGLOBIN 30.3 pg (27.9-34.1); MEAN CELL HEMOGLOBIN CONCENTR. 33.7 g/dL (32.4-36.7); MEAN CELL VOLUME 89.8 fL (81.5-99.8); MEAN PLATELET VOLUME 10.7 fL (8.7-11.7); PLATELET CLUMPS FLAG 0 (0-99); PLATELET COUNT 222 10^3/uL (150-400); RED BLOOD CELL COUNT 4.59 10^6/uL (4.40-6.38); RED CELL DISTRIBUTION WIDTH 12.9 % (11.5-15.2)
[2016-06-20 07:33] LABS: INR 1.11 (0.83-1.16); PROTIME(PATIENT) 14.2 SEC (12.0-15.0)
[2016-06-20] MEDS ORDERED: fentaNYL 250 MCG/5 ML INJ ONE (07:40)
[2016-06-20] MEDS ORDERED: ROCURONIUM 100 MG/10 ML VIAL ONE (07:41)
[2016-06-20] MEDS ORDERED: DEXAMETHASONE 4 MG/ML VIAL ONE (07:41)
[2016-06-20] MEDS ORDERED: PROPOFOL 200 MG/20 ML VIAL ONE (07:41)
[2016-06-20] MEDS ORDERED: LIDOCAINE 2% 100 MG/5 ML SYR ONE (07:41)
[2016-06-20] MEDS ORDERED: METOCLOPRAMIDE 10 MG/2 ML VIAL ONE (07:41)
[2016-06-20 07:48] LABS: ANION GAP 9 mEq/L (8-16); CALCIUM 8.7 mg/dL (8.5-10.4); CARBON DIOXIDE 24 mEq/l (22-31); CHLORIDE 107 mEq/L (97-110); GLOMERULAR FILTRATION RATE > 60; GLUCOSE 90 mg/dL (70-100); POTASSIUM 4.6 mEq/L (3.5-5.2); SODIUM 140 mEq/L (134-144)
[2016-06-20] MEDS ORDERED: MIDAZOLAM 2 MG/2 ML VIAL ONE (07:48)
[2016-06-20] MEDS ORDERED: morphINE *ANESTHESIA ONLY* 10 MG/ML VIAL ONE (09:07)
[2016-06-20] MEDS ORDERED: ONDANSETRON 4 MG/2 ML VIAL IVP PRN (09:36)
[2016-06-20] MEDS ORDERED: NALOXONE HCL 0.4 MG/ML INJ IVP PRN (09:36)
[2016-06-20] MEDS ORDERED: NITROGLYCERIN 0.4 MG BTL SL PRN (09:42)
--- NOTE | 2016-06-20 09:51 | POSTOPPROG ---
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
[2016-06-20] MEDS ORDERED: fentaNYL 100 MCG/2 ML INJ ONE (09:55)
[2016-06-20] MEDS ORDERED: HYDROmorphONE/DILAUDID 1 MG/ML SYR ONE (10:11)
[2016-06-20] MEDS: NS W/ 20 KCl/L 1,000 ML IV SCH ×2 (12:22→20:43)
[2016-06-20] MEDS: HYDROmorphONE/DILAUDID 6 MG/30 ML PCA IV PRN (12:23)
--- NOTE | 2016-06-20 19:21 | SOAPPROG ---
SOAP Progress Note Assessment/Plan: Assessment/Plan: 60 Y M s/p laparotomy with partial gastrectomy, POD#0. Awake. Alert. Comfortable. AFVSS. Wounds intact. Continue routine post op care and tele monitoring. 06/20/16 19:19 Objective: Vital Signs Temp Pulse Resp BP Pulse Ox 37.3 C 62 17 140/78 H 92 06/20/16 19:00 06/20/16 19:00 06/20/16 19:00 06/20/16 19:00 06/20/16 19:00 Laboratory Results 06/20/16 07:15 06/20/16 07:15 06/19/16 06/20/16 06/21/16 05:59 05:59 05:59 Intake Total 1580 Output Total 800 Balance 780 PT 14.2 SEC (12.0-15.0) 06/20/16 07:15 INR 1.11 (0.83-1.16) 06/20/16 07:15 ICD10 Worksheet Patient Problems: Problems Problem Status Onset Cerebral infarction Active Depression - Depressive disorder Active Bicuspid aortic valve Acute Coronary artery disease Acute Upper GI bleed Acute
[2016-06-20] MEDS: METOPROLOL SUCCINATE XR 25 MG TAB PO SCH (20:28)
[2016-06-20] MEDS: ATORVASTATIN CALCIUM 40 MG TAB PO SCH (20:29)
[2016-06-20] MEDS: VERAPAMIL ER 120 MG TAB PO SCH (20:29)
[2016-06-21 05:24] LABS: HEMATOCRIT 39.4 % (40.0-51.0)
[2016-06-21 05:32] LABS: ANION GAP 11 mEq/L (8-16); CALCIUM 8.3 mg/dL (8.5-10.4); CARBON DIOXIDE 21 mEq/l (22-31); CHLORIDE 105 mEq/L (97-110); CREATININE 0.9 mg/dL (0.7-1.3); GLOMERULAR FILTRATION RATE > 60; GLUCOSE 103 mg/dL (70-100); SODIUM 137 mEq/L (134-144)
[2016-06-21] MEDS ORDERED: NON-FORMULARY NEW DRUG (Escitalopram Oxalate [Lexapro] 20 MG) PO SCH (09:00)
[2016-06-21] MEDS: ESCITALOPRAM OXALATE 10 MG TAB PO SCH (10:30)
--- NOTE | 2016-06-21 11:29 | CPEKG ---
Heart Rate: 53 RR Interval: 1132 P-R Interval: 204 QRSD Interval: 122 QT Interval: 456 QTC Interval: 429 P [place]: 38 QRS [place]: -50 T Wave [place]: 4 EKG Severity - ABNORMAL ECG - EKG Impression: SINUS RHYTHM EKG Impression: Incomplete left bundle branch block EKG Impression: Poor R-wave progression EKG Impression: No significant change from January 17, 2016 Electronically Signed By: Abhijit Colindres 21-Jun-2016 12:21:28
[2016-06-21] MEDS ORDERED: CLOPIDOGREL BISULFATE 75 MG TAB PO ONE (11:47)
[2016-06-21] MEDS: NS W/ 20 KCl/L 1,000 ML IV SCH ×2 (12:35→21:16)
--- NOTE | 2016-06-21 12:52 | ECHO ---
[id number] + + [address] : : [place] [address] : : [phone] + + Adult Echocardiographic Report + -------+ :Name: ILENE MAJOR PStudy Date: 06/21/2016 11:57 AM : : Hospital Admission Number: [id number] Locati on: 206: :: 1955 Gender: Male Height: 71 in : :Age: 60 yrs Race: WH,White Weight: 250 lb : :Reason For Study: Eval LV Fx : : BSA: 2.3 meter s2 : :History: Post Abdominal surgery, new onset Chest Pain : + -------+ MMode/2D Measurements \T\ Calculations IVSd: 1.1 cm LVIDd: 6.1 cm FS: 41.5 % Ao root diam: 3.8 cm LVPWd: 1.5 cm LVIDs: 3.6 cm EDV(Teich): 189.8 ml ACS: 1.8 cm ESV(Teich): 54.2 ml LA dimension: 3.8 cm EF(Teich): 71.5 % LVOT diam: 2.3 cm LVOT area: 4.2 cm2 Normal Measurement Values: + + :LVIDd (3.5-5.7cm) IVSd (0.6-1.1cm) LVPWd (0.6-1.1cm) Aortic Root (2.0-3.7cm)Left Atrium (1.5-4.0cm): :LV Vol(d) (76-115ml) LV Vol(s) (29-48ml) Ejec Fraction (50-65%)PV Tony (0.6- 1.2m/s) TV Tony (0.4-1.0m/s) : :MV E Tony (0.8-1.0m/s)MV A Tony (0.3-1.0m/s)LVOT Tony (0.7-1.2m/s) Asc Ao Tony ( 0.9-1.8m/s) : + + Doppler Measurements \T\ Calculations MV E max tony: MV V2 mean: Ao V2 max: AI max tony: 85.9 cm/sec 55.2 cm/sec 214.5 cm/sec 294.5 cm/sec MV A max tony: MV mean PG: Ao max PG: AI max P.2 cm/sec 1.4 mmHg 18.4 mmHg 34.7 mmHg MV E/A: 1.3 MV V2 VTI: 39.5 cmAo mean P.8 mmHg MVA(VTI): 2.5 cm2 Ao V2 mean: 89.6 cm/sec Ao V2 VTI: 26.2 cm THELMA(I,D): 3.7 cm2 THELMA(V,D): 1.5 cm2 LV V1 max: SV(LVOT): 97.0 ml PA V2 max: TR max tony: 78.0 cm/sec 85.5 cm/sec 259.3 cm/sec LV V1 max PG: PA max PG: TR max P.4 mmHg 2.9 mmHg 26.9 mmHg LV V1 mean PG: RAP systole: 1.4 mmHg 5.0 mmHg LV V1 mean: RVSP(TR): 31.9 mmHg 54.8 cm/sec LV V1 VTI: 23.3 cm Left Ventricle The left ventricle is normal in size. There is mild concentric left ventricular hypertrophy. The left ventricular ejection fraction is normal. There is Doppler evidence for diastolic dysfunction. Ejection Fraction = 72%. The left ventricular wall motion is normal. Right Ventricle The right ventricle is normal in size and function. Atria The left atrial size is normal. Right atrial size is normal. Mitral Valve The mitral valve is normal in structure and function. There is no evidence of mitral valve prolapse. There is no mitral valve stenosis. There is no mitral regurgitation noted. Tricuspid Valve Normal tricuspid valve. There is trace to mild tricuspid regurgitation. Right ventricular systolic pressure is 32mmHg. Aortic Valve There is a known bicuspid aortic valve with mild calcification. There is no aortic stenosis. Mild aortic regurgitation. Pulmonic Valve The pulmonic valve is normal in structure and function. There is no pulmonic valvular regurgitation. Great Vessels The aortic root is normal size. Pericardium/Pleural There is no pericardial effusion. There is no subcostal views available due to abdominal surgery dressings, poor apical views. Conclusion A complete two-dimensional transthoracic echocardiogram was performed (2D, M-mode, Doppler and color flow Doppler). The left ventricular ejection fraction is normal. There is Doppler evidence for diastolic dysfunction. Ejection Fraction = 72%. The left ventricular wall motion is normal. There is mild concentric left ventricular hypertrophy. The mitral valve is normal in structure and function. There is trace to mild tricuspid regurgitation. Right ventricular systolic pressure is 32mmHg. There is a known bicuspid aortic valve with mild calcification. Mild aortic regurgitation. There is no pericardial effusion. There is no subcostal views available due to abdominal surgery dressings, poor apical views. Final Reading Physician: Alonso Villarreal signed on 06/21/2016 12:52 PM Ordering Physician: Edwin Nagy Performed By: Rodrgiuez Hennessy, FLORES
[2016-06-21] MEDS ORDERED: ENOXAPARIN 40 MG/0.4 ML SYR SC ONE (15:00)
[2016-06-21] MEDS: WARFARIN SODIUM 5 MG TAB PO SCH (15:59)
--- NOTE | 2016-06-21 21:08 | GCON ---
[f rep st] CONSULTATION CARDIOLOGY CONSULTATION. REASON FOR CONSULTATION: Chest pressure, known history of coronary artery disease. HISTORY OF PRESENT ILLNESS: The patient is known to our practice, he has significant past cardiac history that includes CAD, with previous PTCA and PCI with stent implantation, most recent cardiac catheterization was done 07/2015, showing no significant flow-limiting disease. Previous stent in the LAD was widely patent without evidence of in-stent stenosis. He also has known history of bicuspid aortic valve, ascending aortic aneurysm, which most recent echocardiogram measured at 4.4 cm (04/21/2016), hypertension, hypercholesterolemia, and history of multiple CVAs x3. Recently found to have a mass in his stomach lining, he underwent exploratory laparoscopic surgery by Dr. Wong, on 06/20, in which he had a partial gastrectomy and also an umbilical hernia repaired. There were no complications. Patient reporting starting last night, noticing a left anterior focal chest pressure that radiated into his back. Reported symptoms would wax and wane throughout the night, reporting all the way until this morning, in which he notified his nurse. Reporting soon after explaining to his nurse, his symptoms subsided. At the time of my examination, he reports no chest pressure or pain. He did undergo electrocardiogram during pain, which did note sinus rhythm, nonspecific interventricular conduction delay, left anterior fascicular block. No acute ST or T-wave abnormalities. His electrocardiogram was mostly unchanged from EKG done in our office, dated 04/13/2016. He also had an echocardiogram done, which showed normal LV systolic function with no wall motion abnormalities, EF was estimated at 72%, and had a negative troponin level. He has been off his anti-platelet therapy of clopidogrel and anticoagulation of warfarin preoperatively, and has recently been restarted on them. He has also just recently been restarted on his beta-lenin. He denies any shortness of breath , palpitations, lightheadedness. Reports prior to surgery he had been in his normal state of health, denying any recent fevers, chills, or night sweats. He is also noted to have a recent MPI study, done on April 19 of this year at our office. Imaging showed a moderate intense fixed mid apical deficit consistent with infarct, but no ischemia, normal LV systolic function, with no wall motion abnormalities. PAST MEDICAL HISTORY: 1. CAD with previous PCI of the LAD and PTCA. 2. Bicuspid aortic valve. 3. Dilated ascending aorta, with most recent measurement at 4.4 cm, based on echocardiogram 04/21/2016. 4. Mild AI, ASD, hypertension, hyperlipidemia, REANNA, CVA. PAST SURGICAL HISTORY: As mentioned above, partial gastrectomy and umbilical hernia repaired, done by Dr. Wong, 06/20/2016. FAMILY HISTORY: Patient noted to have family history of CAD. SOCIAL HISTORY: Patient is noted to be a nonsmoker, no excessive alcohol intake , currently uses caffeine every day. Denies of any illicit drug use. He is , he works as a housing contractor. ALLERGIES: The patient has listed allergies of corn, flaxseed, almond oil, amitriptyline, coconut, Bystolic, pistachio nuts, shrimp, tree nuts, buckwheat, cherries, clams, crabs, lobsters, oysters, rice, chocolate, grapes, and pistachio. HOME MEDICATIONS: 1. Warfarin 15 mg p.o. every Sunday and Sunday. 2. Warfarin 10 mg p.o. every Sunday, Sunday, Sunday, Sunday, Sunday. 3. Verapamil 120 mg p.o. h.s. 4. Sublingual nitro p.r.n. use for chest pressure. 5. Metoprolol succinate 25 mg p.o. h.s. 6. Lexapro 20 mg p.o. daily. 7. Clopidogrel 75 mg p.o. daily. 8. Atorvastatin 80 mg p.o. daily. REVIEW OF SYSTEMS: A 10-point review of systems done on this patient all negative, except as mentioned above. PHYSICAL EXAMINATION: GENERAL APPEARANCE: Medium built, well-groomed, male. He is alert and oriented to person, place, time, and situation , mildly obese with BMI of 34. VITAL SIGNS: Current vital signs are blood pressure of 141/73, heart rate of 69, in sinus rhythm on the monitor, respirations 18, saturating 92% on room air. Temperature of 36.6 degree Celsius. HEENT: Head is normocephalic. Lips and tongue are pink and moist with no signs of cyanosis. Conjunctivae pink. NECK: Trachea is midline, +2 carotid pulses bilateral, no auscultated bruits, no jugular vein distention. RESPIRATORY: Lungs clear, but diminished in bases bilateral. No rhonchi, rales or wheezes. No accessory muscle use, no intercostal muscle retraction noted. CARDIAC: Regular rate, regular rhythm, S1, S2. No S3 noted, systolic murmur noted bilateral upper sternum. ABDOMEN: Obese, redundant, tender to palpitations, bowel sounds hypoactive, mid abdomen dressing clean, dry, and intact. SKIN: [place], warm, dry , no cyanosis, no clubbing, no peripheral edema. VASCULAR: +2 carotids bilateral, +2 radials bilateral, +2 dorsal pedal and posterior tibial pulses bilateral. NEURO: Cranial nerves 2-12 grossly intact. LABORATORY DATA: On admission, CBC showed WBC 6.50, hemoglobin of 13.9, hematocrit of 41.2, platelet count 222. This morning hemoglobin was 13.0, 39.4 hematocrit. Noted on admission INR was 1.11. Chemistries today showed sodium 137, potassium 5.0, chloride 105, CO2 21, BUN 16, creatinine 0.9, glucose 103, calcium 8.3. Troponin level done at 11:30 was less than 0.012. STUDIES: Electrocardiogram done today shows sinus rhythm, with nonspecific interventricular conduction today, left anterior fascicular block, no significant ST or T-wave changes suggesting of ischemia. Electrocardiogram is unchanged from EKG done in our office April 13, 2016. Echocardiogram done at 11:30 today, shows normal EF at 72%, no wall motion abnormality, diastolic dysfunction, mild concentric LVH, trace to mild TR, RVSP at 32 mmHg, bicuspid aortic valve with mild calcification, mild AI, no pericardial effusion. ASSESSMENT AND PLAN: 1. Chest pressure: Patient with known history of coronary artery disease, reporting left anterior chest pressure with radiation to the back, reports symptoms have subsided, negative troponin, EKG unchanged, patient with recent nuclear stress test showing no signs of ischemia, in March. Echocardiogram today showing normal LV systolic function, with no wall motion abnormalities, normal ejection fraction. At this time, with his history there is always concern for acute coronary syndrome, I would like to cycle troponins every 6 hours for a total of 3, to make sure no evaluation. We will repeat electrocardiogram in a.m. Potentially also with recent abdominal surgery, pulmonary embolus could be a possibility with patient's history of embolic strokes. Patient denies any shortness of breath. His saturation remains stable. He is planned to be restarted on his Lovenox and warfarin therapy. We will hold off on CTA at this time, but if his symptoms do recur would consider that. We will plan for him to be, when cleared by surgery, for him to be fully anticoagulated with Lovenox, with bridging warfarin level, until his INRs return back to therapeutic (greater than 3). He has been restarted on anti- platelet therapy of clopidogrel. He is not on aspirin due to being on warfarin. He has also been restarted on his beta-lenin. Sublingual nitroglycerin has been ordered too. We will continue to monitor. 2. Bicuspid aortic valve: The patient noted to have a bicuspid aortic valve, no significant change, with [id number] AI. No significant change from previous echocardiogram, continue medical management. 3. Hypertension: Blood pressure mildly elevated, potentially could be caused by partial pain from recent surgery. He has been restarted on his home dose of metoprolol succinate, also starting him back on his verapamil too, depending on how his blood pressure does, continue to monitor. 4. Hypercholesteremia, hyperlipidemia: Patient has been started back on a statin therapy. 5. Obstructive sleep apnea: Patient currently using CPAP when resting. 6. Gastric mass, status post partial gastrectomy and umbilical hernia repaired , incision intact. 7. Anemia: Most likely postoperative anemia. We will monitor. We will repeat CBC in a.m. 8. History of cerebrovascular accidents, thought to be embolic, patient has been restarted on Lovenox therapy, noted that this is the low dose, would recommend when okay by surgery that he be increased back up to 1 mg/kg, until his INR has returned back to within normal limits. He has been restarted on warfarin therapy. 9. Dilated ascending aorta: Most recent echocardiogram in March, measured 4.4 cm, showed no significant gross from previous echocardiogram in 2014. Pulses are equal bilateral, patient reports. Restart on his metoprolol tartrate , monitor blood pressure control as mentioned above. Thank you for this consultation. We will be glad to follow along with you. /[id number]/MODL MTDD
[2016-06-21] MEDS: HYDROmorphONE/DILAUDID 6 MG/30 ML PCA IV PRN (21:13)
[2016-06-21] MEDS: METOPROLOL SUCCINATE XR 25 MG TAB PO SCH (21:16)
[2016-06-21] MEDS: ATORVASTATIN CALCIUM 40 MG TAB PO SCH (21:16)
[2016-06-21] MEDS: VERAPAMIL ER 120 MG TAB PO SCH (21:17)
[2016-06-22] MEDS: NS W/ 20 KCl/L 1,000 ML IV SCH ×3 (03:20→20:34)
[2016-06-22 04:37] LABS: HEMATOCRIT 38.8 % (40.0-51.0); HEMOGLOBIN 12.8 g/dL (13.7-17.5); MEAN CELL HEMOGLOBIN 30.5 pg (27.9-34.1); MEAN CELL VOLUME 92.4 fL (81.5-99.8); RED BLOOD CELL COUNT 4.2 10^6/uL (4.40-6.38); RED CELL DISTRIBUTION WIDTH 13.1 % (11.5-15.2)
[2016-06-22 04:45] LABS: INR 1.16 (0.83-1.16); PROTIME(PATIENT) 14.8 SEC (12.0-15.0)
[2016-06-22 05:00] LABS: ANION GAP 8 mEq/L (8-16); CALCIUM 8.5 mg/dL (8.5-10.4); CARBON DIOXIDE 22 mEq/l (22-31); CHLORIDE 108 mEq/L (97-110); CREATININE 0.9 mg/dL (0.7-1.3); GLOMERULAR FILTRATION RATE > 60; GLUCOSE 87 mg/dL (70-100); POTASSIUM 4.5 mEq/L (3.5-5.2); SODIUM 138 mEq/L (134-144)
--- NOTE | 2016-06-22 08:36 | CPEKG ---
Heart Rate: 54 RR Interval: 1111 P-R Interval: 196 QRSD Interval: 120 QT Interval: 440 QTC Interval: 417 P Varna: 37 QRS Varna: -43 T Wave Varna: 11 EKG Severity - ABNORMAL ECG - EKG Impression: SINUS RHYTHM EKG Impression: LEFT ANTERIOR FASCICULAR BLOCK EKG Impression: Poor R-wave progression EKG Impression: Possible left atrial abnormality EKG Impression: No significant change from June 21, 2016 Electronically Signed By: Abhijit Colindres 22-Jun-2016 15:01:39
[2016-06-22] MEDS ORDERED: CLOPIDOGREL BISULFATE 75 MG TAB PO SCH (09:00)
[2016-06-22] MEDS: ESCITALOPRAM OXALATE 10 MG TAB PO SCH (09:33)
[2016-06-22] MEDS: ENOXAPARIN 120 MG/0.8 ML SYR SC SCH ×2 (09:33→20:34)
--- NOTE | 2016-06-22 13:01 | PDCARPN ---
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 Noted an episode of cp yesterday as well as this AM. #. cp in pt with known CAD. episode this AM at small area of chest near L sternum dissimilar from ACS pt resumed BB and other cardiac meds echo with no WMA and pt has neg enzymes/ecg unchanged #. NSVT: 7-beat run versus SVT with aberrancy will review with Dr. Cox has had LHC 08/08 with patent stent an 04/11 nuc with no ischemia #. GIST s/p gastrectomy: per surgery Plan: - keep on telemetry - agree with resuming BB, Clopidogrel, Coumadin with bridging 06/22/16 12:51 Subjective: Feels mildly febrile. CP this AM was mild and spontaneously resolved. No dyspnea currently but feels phlegm in throat. Still with moderate abd pain. Objective: Vital Signs (8 Hrs) Temp Pulse Resp BP Pulse Ox 06/22/16 12:00 99.2 F 65 19 127/73 H 90 L 06/22/16 10:00 99.2 F 61 22 H 127/78 H 90 L 06/22/16 08:00 98.7 F 54 L 20 132/82 H 93 06/22/16 06:00 98.0 F 55 L 14 142/84 H 92 Intake/Output (24 Hrs) 06/21/16 06/22/16 06/23/16 05:59 05:59 05:59 Intake Total 1580 3560.4 Output Total 1999 5100 600 Balance -420 -1539.6 -600 Intake: Oral (ml) 30 600 IV Intake (ml) 1550 IV Infused (ml) 2960.4 HYDROmorphone HCL See 2.4 Protocol IV PRN PRN Rx#: [id number] NS W/ 20 KCl/L 1,000 ml @ 2958 125 mls/hr IV CONT MARK Rx#:[id number] Output: Urine (ml) 1974 5100 600 Catheter 1974 5100 400 Urinal 200 Estimated Blood Loss (ml) 25 Other: Intake Quantity No: NPO Sufficient Result Diagrams: 06/22/16 03:42 06/22/16 03:42 Cardiac Labs: Cardiac Lab Results (72 Hrs) 06/21/16 06/21/16 06/21/16 22:03 18:05 12:20 Troponin I < 0.012 < 0.012 < 0.012 EKG: SR with LAFB, bord 1st deg AVB, delayed RWP, IVCD Telemetry: SR with 7-beat NSVT vs SVT with aberrancy at 2:41 AM Echocardiogram: EF 75%, BAV, mild conc LVH, mild AR - Physical Exam Constitutional: WDWN, no apparent distress Eyes: anicteric sclera Ears, Nose, Mouth, Throat: moist mucous membranes Cardiovascular: regular rate and rhythm, systolic murmur Respiratory: clear to auscultate bilat, no crackles Gastrointestinal: normoactive bowel sounds, other (+distention) Genitourinary: no suprapubic tenderness Skin: no rashes, no abrasions, no edema, No erythema Neurologic: AAOx3 Psychiatric: cooperative, interactive ICD10 Worksheet Patient Problems: Problems Problem Status Onset Cerebral infarction Active Depression - Depressive disorder Active Bicuspid aortic valve Acute Coronary artery disease Acute Upper GI bleed Acute
[2016-06-22] MEDS ORDERED: WARFARIN SODIUM 7.5 MG TAB PO SCH (16:00)
--- NOTE | 2016-06-22 16:23 | SOAPPROG ---
SOAP Progress Note Assessment/Plan: Assessment/Plan: 60 Y M s/p laparotomy with partial gastrectomy, POD#2. * d/c pak catheter * will advance diet to clear liquids * Continue routine post op care and tele monitoring # chest pain - troponins NEGATIVE - prob d/t tension from surgery - will continue to monitor # VTAC episode last night - asymptomatic - will consult with cardiology S: Patient was doing OK. States abdominal pain is better. O: Gen: Awake Alert. Comfortable. HEENT: mmm Chest: no use of accessory muscle Abd: Soft non-tender. Wounds intact, clean and dry. AFVSS. 06/22/16 16:21 06/22/16 16:31 Objective: Vital Signs Temp Pulse Resp BP Pulse Ox 37.4 C 57 L 13 120/65 88 L 06/22/16 14:00 06/22/16 14:00 06/22/16 14:00 06/22/16 14:00 06/22/16 14:00 Laboratory Results 06/22/16 03:42 06/22/16 03:42 06/21/16 06/22/16 06/23/16 05:59 05:59 05:59 Intake Total 1580 3560.4 Output Total 2000 5100 1000 Balance -420 -1539.6 -1000 PT 14.8 SEC (12.0-15.0) 06/22/16 03:42 INR 1.16 (0.83-1.16) 06/22/16 03:42 ICD10 Worksheet Patient Problems: Problems Problem Status Onset Cerebral infarction Active Depression - Depressive disorder Active Bicuspid aortic valve Acute Coronary artery disease Acute Upper GI bleed Acute
[2016-06-22] MEDS: CLOPIDOGREL BISULFATE 75 MG TAB PO SCH (20:35)
[2016-06-22] MEDS: METOPROLOL SUCCINATE XR 25 MG TAB PO SCH (20:35)
[2016-06-22] MEDS: ATORVASTATIN CALCIUM 40 MG TAB PO SCH (20:35)
[2016-06-22] MEDS: VERAPAMIL ER 120 MG TAB PO SCH (20:35)
[2016-06-23] MEDS: HYDROmorphONE/DILAUDID 6 MG/30 ML PCA IV PRN (01:56)
[2016-06-23] MEDS: NS W/ 20 KCl/L 1,000 ML IV SCH ×3 (04:05→19:45)
[2016-06-23 04:53] LABS: INR 1.48 (0.83-1.16); PROTIME(PATIENT) 17.9 SEC (12.0-15.0)
[2016-06-23] MEDS: ENOXAPARIN 120 MG/0.8 ML SYR SC SCH ×2 (08:16→20:05)
[2016-06-23] MEDS: ESCITALOPRAM OXALATE 10 MG TAB PO SCH (08:16)
--- NOTE | 2016-06-23 14:04 | SOAPPROG ---
SOAP Progress Note Assessment/Plan: Assessment: 60 year old male s/p lap partial gastrectomy with umbilical hernia repair POD 3 , GIST tumor S: Pain well controlled. Tolerating clears. Lacks an appetite but does try to drink lots of fluids. Feels fatigue but knows this is normal post-op. No fever, chills, nausea, or vomiting. PE: awake, alert, comfortable ctab rrr incisions cdi, no drainage or erythema Plan: Continue routine wound care. Encouraged ambulation. May advance diet as tolerated. Discussed possible discharge this weekend but patient expressed desire to recover a bit longer. 06/23/16 13:57 Objective: Vital Signs Temp Pulse Resp BP Pulse Ox 36.7 C 55 L 16 140/78 H 92 06/23/16 12:00 06/23/16 12:00 06/23/16 12:00 06/23/16 12:00 06/23/16 12:00 Laboratory Results 06/22/16 03:42 06/22/16 03:42 06/22/16 06/23/16 06/24/16 05:59 05:59 05:59 Intake Total 3560.4 2668 Output Total 5100 3575 Balance -1539.6 -907 PT 17.9 SEC (12.0-15.0) H 06/23/16 03:44 INR 1.48 (0.83-1.16) H 06/23/16 03:44 ICD10 Worksheet Patient Problems: Problems Problem Status Onset Cerebral infarction Active Depression - Depressive disorder Active Bicuspid aortic valve Acute Coronary artery disease Acute Upper GI bleed Acute
--- NOTE | 2016-06-23 14:34 | PDCARPN ---
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 Noted a couple of episodes of cp. #. cp in pt with known CAD. no further episodes pt resumed BB and other cardiac meds echo with no WMA and pt has neg enzymes/ecg unchanged #. NSVT versus SVT with aberrancy: 7-beat run versus SVT with aberrancy on 06/22 at 2 AM and then 5-beat at 1440 06/22 Dr. Cox has reviewed and feels it is SVT with aberrancy has had LHC 08/08 with patent stent an 04/11 nuc with no ischemia #. htn: BP borderline elevated will monitor and defer adding another antihypertensive for now #. GIST s/p gastrectomy: per surgery Plan: - keep on telemetry - agree with resuming BB, Clopidogrel, Coumadin with bridging 06/23/16 14:34 Subjective: No further episodes of cp. Has been ambulating. Objective: Vital Signs (8 Hrs) Temp Pulse Resp BP Pulse Ox 06/23/16 14:00 57 L 17 134/84 H 93 06/23/16 12:00 98.0 F 55 L 16 140/78 H 92 06/23/16 09:44 98.5 F 53 L 18 152/62 H 91 L 06/23/16 08:00 98.3 F 55 L 17 136/77 H 94 Intake/Output (24 Hrs) 06/22/16 06/23/16 06/24/16 05:59 05:59 05:59 Intake Total 3560.4 2668 Output Total 5100 3575 Balance -1539.6 -907 Intake: Oral (ml) 600 1330 IV Infused (ml) 2960.4 1338 HYDROmorphone HCL See 2.4 Protocol IV PRN PRN Rx#: [id number] NS W/ 20 KCl/L 1,000 ml @ 2958 1338 125 mls/hr IV CONT MARK Rx#:[id number] Output: Urine (ml) 5100 3575 Catheter 5100 400 Urinal 3175 Other: Intake Quantity No: NPO Sufficient Result Diagrams: 06/22/16 03:42 06/22/16 03:42 Cardiac Labs: Cardiac Lab Results (72 Hrs) 06/21/16 06/21/16 06/21/16 22:03 18:05 12:20 Troponin I < 0.012 < 0.012 < 0.012 Telemetry: reviewed - Physical Exam Constitutional: no apparent distress Eyes: anicteric sclera Ears, Nose, Mouth, Throat: moist mucous membranes Cardiovascular: regular rate and rhythm, systolic murmur Respiratory: clear to auscultate bilat, no crackles Skin: no rashes, no abrasions ICD10 Worksheet Patient Problems: Problems Problem Status Onset Cerebral infarction Active Depression - Depressive disorder Active Bicuspid aortic valve Acute Coronary artery disease Acute Upper GI bleed Acute
[2016-06-23] MEDS: WARFARIN SODIUM 5 MG TAB PO SCH (16:27)
[2016-06-23] MEDS: ATORVASTATIN CALCIUM 40 MG TAB PO SCH (20:04)
[2016-06-23] MEDS: CLOPIDOGREL BISULFATE 75 MG TAB PO SCH (20:05)
[2016-06-23] MEDS: METOPROLOL SUCCINATE XR 25 MG TAB PO SCH (20:05)
[2016-06-23] MEDS: VERAPAMIL ER 120 MG TAB PO SCH (20:05)
--- NOTE | 2016-06-24 00:10 | SOAPPROG ---
SOAP Progress Note Assessment/Plan: Assessment/Plan: 60 Y M s/p laparotomy with partial gastrectomy, POD#2. * d/c pak catheter * will advance diet to clear liquids * Continue routine post op care and tele monitoring # chest pain - troponins NEGATIVE - prob d/t tension from surgery - will continue to monitor # VTAC episode last night - asymptomatic - will consult with cardiology S: Patient was doing OK. States abdominal pain is better. O: Gen: Awake Alert. Comfortable. HEENT: mmm Chest: no use of accessory muscle Abd: Soft non-tender. Wounds intact, clean and dry. AFVSS. 06/22/16 16:21 06/22/16 16:31 06/24/16 00:07 DOING BETTER TODAY WITH GOOD AIR MOVEMENT/ AFEBRILE/ WOUND OK/ PATH LOW GRADE GIST TUMOR Objective: Vital Signs Temp Pulse Resp BP Pulse Ox 36.7 C 50 L 23 H 129/77 H 95 06/23/16 22:00 06/23/16 23:21 06/23/16 22:00 06/23/16 22:00 06/23/16 23:21 Laboratory Results 06/22/16 03:42 06/22/16 03:42 06/22/16 06/23/16 06/24/16 05:59 05:59 05:59 Intake Total 3560.4 2668 1500 Output Total 5100 3575 250 Balance -1539.6 -907 1250 PT 17.9 SEC (12.0-15.0) H 06/23/16 03:44 INR 1.48 (0.83-1.16) H 06/23/16 03:44 ICD10 Worksheet Patient Problems: Problems Problem Status Onset Cerebral infarction Active Depression - Depressive disorder Active Bicuspid aortic valve Acute Coronary artery disease Acute Upper GI bleed Acute
[2016-06-24] MEDS: NS W/ 20 KCl/L 1,000 ML IV SCH (02:58)
[2016-06-24] MEDS: ESCITALOPRAM OXALATE 10 MG TAB PO SCH (08:56)
[2016-06-24] MEDS: ENOXAPARIN 120 MG/0.8 ML SYR SC SCH ×2 (08:56→20:19)
[2016-06-24] MEDS ORDERED: HYDROmorphONE/DILAUDID 1 MG/ML SYR IVP PRN (09:06)
--- NOTE | 2016-06-24 09:11 | SOAPPROG ---
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 trying oatmeal this am O: BS present Sitting in chair Incision cdi Plan: 06/24/16 09:09 Objective: Vital Signs Temp Pulse Resp BP Pulse Ox 37.1 C 54 L 18 136/76 H 93 06/24/16 08:15 06/24/16 08:15 06/24/16 08:15 06/24/16 08:15 06/24/16 08:15 Laboratory Results 06/22/16 03:42 06/22/16 03:42 06/23/16 06/24/16 06/25/16 05:59 05:59 05:59 Intake Total 2668 2985 Output Total 3575 1500 Balance -907 1485 PT 17.9 SEC (12.0-15.0) H 06/23/16 03:44 INR 1.48 (0.83-1.16) H 06/23/16 03:44 ICD10 Worksheet Patient Problems: Problems Problem Status Onset Cerebral infarction Active Depression - Depressive disorder Active Bicuspid aortic valve Acute Coronary artery disease Acute Upper GI bleed Acute
[2016-06-24] MEDS: OXYCODONE/APAP 5/325 TAB PO PRN ×3 (10:10→20:20)
--- NOTE | 2016-06-24 10:52 | PDCARPN ---
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 Noted a couple of episodes of cp. #. cp in pt with known CAD. no further episodes pt resumed BB and other cardiac meds echo with no WMA and pt has neg enzymes/ecg unchanged #. NSVT versus SVT with aberrancy: 7-beat run versus SVT with aberrancy on 06/22 at 2 AM and then 5-beat at 1440 06/22 Dr. Cox has reviewed and feels it is SVT with aberrancy has had LHC 08/08 with patent stent an 04/11 nuc with no ischemia #. previous strokes: back on Coumadin #. htn: BP borderline elevated will monitor and defer adding another antihypertensive for now #. GIST s/p gastrectomy: per surgery Plan: - keep on telemetry - agree with resuming BB, Clopidogrel, Coumadin with bridging/ check INR 06/25 Cardiology will sign off for now. Please reconsult as needed. 06/24/16 10:50 Subjective: Feels well. Had solid food. Objective: Vital Signs (8 Hrs) Temp Pulse Resp BP Pulse Ox 06/24/16 08:15 98.8 F 54 L 18 136/76 H 93 06/24/16 06:00 98.0 F 58 L 22 H 111/85 H 93 06/24/16 04:00 98.6 F 55 L 16 121/71 H 91 L Intake/Output (24 Hrs) 06/23/16 06/24/16 06/25/16 05:59 05:59 05:59 Intake Total 2668 2985 Output Total 3575 1500 800 Balance -907 1485 -800 Intake: Oral (ml) 1330 IV Infused (ml) 1338 2985 NS W/ 20 KCl/L 1,000 ml @ 1338 2985 125 mls/hr IV CONT MARK Rx#:[id number] Output: Urine (ml) 3575 1500 800 Catheter 400 Urinal 3175 1500 800 Other: Number of Stools Urinal 2 Result Diagrams: 06/22/16 03:42 06/22/16 03:42 Cardiac Labs: Cardiac Lab Results (72 Hrs) 06/21/16 06/21/16 06/21/16 22:03 18:05 12:20 Troponin I < 0.012 < 0.012 < 0.012 Telemetry: SR - Physical Exam Constitutional: no apparent distress Eyes: PERRL Cardiovascular: regular rate and rhythm, systolic murmur Respiratory: clear to auscultate bilat, no crackles ICD10 Worksheet Patient Problems: Problems Problem Status Onset Cerebral infarction Active Depression - Depressive disorder Active Bicuspid aortic valve Acute Coronary artery disease Acute Upper GI bleed Acute
[2016-06-24] MEDS: WARFARIN SODIUM 5 MG TAB PO SCH (15:07)
[2016-06-24] MEDS: CLOPIDOGREL BISULFATE 75 MG TAB PO SCH (20:19)
[2016-06-24] MEDS: ATORVASTATIN CALCIUM 40 MG TAB PO SCH (20:19)
[2016-06-24] MEDS: METOPROLOL SUCCINATE XR 25 MG TAB PO SCH (20:20)
[2016-06-24] MEDS: VERAPAMIL ER 120 MG TAB PO SCH (20:20)
[2016-06-24] MEDS ORDERED: LORazepam 1 MG TAB PO PRN (20:30)
[2016-06-24] MEDS ORDERED: LORazepam 2 MG/ML INJ IVP PRN (20:30)
[2016-06-25] MEDS: OXYCODONE/APAP 5/325 TAB PO PRN ×2 (02:46→08:34)
[2016-06-25 03:45] VITALS: O2SAT 92
[2016-06-25 04:17] LABS: INR 1.99 (0.83-1.16); PROTIME(PATIENT) 22.7 SEC (12.0-15.0)
[2016-06-25 08:04] VITALS: BP 140/89; PULSE 55; RESP 17; TEMP 98.3
--- NOTE | 2016-06-25 08:32 | SOAPPROG ---
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 F/U INR clinic Sun. Goal 3-3.5 Has lovenox at home may shower S: Was worried about cardiac event yesterday but trops normal. Eager to go home today O: Standing, appears comfortable INcision cdi Soft CTAB regular rate Plan: 06/24/16 09:09 06/25/16 08:31 Objective: Vital Signs Temp Pulse Resp BP Pulse Ox 36.8 C 55 L 17 140/89 H 92 06/25/16 08:00 06/25/16 08:00 06/25/16 08:00 06/25/16 08:00 06/25/16 08:00 Laboratory Results 06/22/16 03:42 06/22/16 03:42 06/24/16 06/25/16 06/26/16 05:59 05:59 05:59 Intake Total 2985 1900 Output Total 1500 800 Balance 1485 1100 PT 22.7 SEC (12.0-15.0) H 06/25/16 03:43 INR 1.99 (0.83-1.16) H 06/25/16 03:43 ICD10 Worksheet Patient Problems: Problems Problem Status Onset Cerebral infarction Active Depression - Depressive disorder Active Bicuspid aortic valve Acute Coronary artery disease Acute Upper GI bleed Acute
[2016-06-25] MEDS: ESCITALOPRAM OXALATE 10 MG TAB PO SCH (08:33)
[2016-06-25] MEDS: ENOXAPARIN 120 MG/0.8 ML SYR SC SCH (08:34)
--- NOTE | 2016-06-25 09:33 | PDCARPN ---
Cardiology Progress Note Chief Complaint: No complaints this morning, but the patient did have a chest pain yesterday, about 30 minutes after being seen by PA-C Assessment/Plan: Assessment: 60 y/o male with history of CAD s/p PCI to LAD (2013), POBA to LAD, bicuspid aortic valve with TAA (4.4 cm), multiple CVA history, REANNA with CPAP use, HTN, and HLP, who had abdominal surgery (POD#5) for a gastric mass. Ongoing use of medical therapy for control of blood pressure, and coumadin (resumed post surgery) for history of CVAs. No cardiovascular complaints today, but some non specific chest "twinges" were noted yesterday. Plans for the patient to go home today. Plan: (1) D/C home pending (2) Would arrange for patient to be seen by [facility] this week (3) Maintain therapy on coumadin (as at present) with INR assessment in three days (4) Metoprolol to continue for history of HTN (this being more tolerated than Coreg in past) (5) Plavix, likely for life, with history of LAD stenting (6) Statins should continue for history of HLP, and maintain annual assessment of cholesterol and LFTs Subjective: No cardiovascular complaints today Time Spent With Patient: 15 minutes Objective: Vital Signs (8 Hrs) Temp Pulse Resp BP Pulse Ox 06/25/16 08:00 36.8 C 55 L 17 140/89 H 92 06/25/16 03:43 36.7 C 46 L 15 123/68 H 92 Intake/Output (24 Hrs) 06/24/16 06/25/16 06/26/16 05:59 05:59 05:59 Intake Total 2985 1900 Output Total 1500 800 Balance 1485 1100 Intake: Oral (ml) 1900 IV Infused (ml) 2985 NS W/ 20 KCl/L 1,000 ml @ 2985 125 mls/hr IV CONT MARK Rx#:[id number] Output: Urine (ml) 1500 800 Urinal 1500 800 Other: Number of Voids Toilet 1 Number of Stools Toilet 1 Urinal 2 1 Result Diagrams: 06/22/16 03:42 06/22/16 03:42 Cardiac Labs: Cardiac Lab Results (72 Hrs) 06/24/16 21:04 Troponin I < 0.012 EKG: normal sinus rhythm was noted on 06-22-16 - Physical Exam Constitutional: WDWN, healthy appearing, no apparent distress Eyes: PERRL, EOMI Ears, Nose, Mouth, Throat: moist mucous membranes Cardiovascular: regular rate and rhythm, no murmurs, no rubs, no gallops, No jugular vein distention Peripheral Pulses: 2+: dorsalis-pedis (R), dorsalis-pedis (L) Respiratory: clear to auscultate bilat, no crackles, no wheezes Gastrointestinal: no tenderness Skin: no edema Musculoskeletal: no muscular tenderness Neurologic: AAOx3, CN II-XII grossly intact Psychiatric: cooperative, interactive, following commands ICD10 Worksheet Patient Problems: Problems Problem Status Onset Cerebral infarction Active Depression - Depressive disorder Active Bicuspid aortic valve Acute Coronary artery disease Acute Upper GI bleed Acute
== END 2016-06-25 11:59 | disposition home or self-care (01) | DRG 988 ==
LOC: F3E 06:33 → EEVIPCON 06:33 → F1N 11:53 → F2W 18:55
PROVIDERS: ADMIT Surgery; ATTEND Surgery
PROC: 0WQF0ZZ Repair Abdominal Wall, Open Approach (ICD-10-PCS; principal; 2016-06-20 08:00)
PROC: 0DB60ZX Excision of Stomach, Open Approach, Diagnostic (ICD-10-PCS; principal; 2016-06-20 08:00)
DX: C49.A2 Gastrointestinal stromal tumor of stomach (principal); K42.9 Umbilical hernia without obstruction or gangrene; I47.1 Supraventricular tachycardia; Q23.1 Congenital insufficiency of aortic valve; R07.89 Other chest pain; I25.10 Atherosclerotic heart disease of native coronary artery without angina pectoris; I71.2 Thoracic aortic aneurysm, without rupture; I10 Essential (primary) hypertension; E78.00 Pure hypercholesterolemia, unspecified; G47.33 Obstructive sleep apnea (adult) (pediatric); Z86.73 Personal history of transient ischemic attack (TIA), and cerebral infarction without residual deficits; Z95.5 Presence of coronary angioplasty implant and graft
CPT/HCPCS: J0697; J1100; J1170; J1650; J2001; J2250; J2704; J2765; J3010

== ENCOUNTER 2017-10-15 11:36 | Emergency (ER) | payer OTHER ==
[2017-10-15] MEDS ORDERED: DEXAMETHASONE 4 MG TAB PO ONE (13:34)
--- NOTE | 2017-10-15 13:34 | EDPHY ---
H & P Stated Complaint: swollen glands, SOB, weakness for past 24 hours Time Seen by Provider: 10/15/17 13:27 HPI/ROS: CHIEF COMPLAINT: Sore throat HISTORY OF PRESENT ILLNESS: Patient is a 61-year-old man who comes to the emergency department complaining of a sore throat. He received a CT of his abdomen and pelvis on Sunday as routine follow-up 1 year from stomach cancer. After the CT scan he developed some nausea and dizziness and body aches that he thought was a reaction to the iodine. He was seen here in the ER and had a negative head CT, chest x-ray, EKG and 2 troponins and was discharged. He felt well over the weekend and then today began to notice a sore throat. No swelling. No difficulty breathing. No cough or shortness of breath. No runny nose. No ear pain. No exudate. REVIEW OF SYSTEMS: Constitutional: denies: chills, fever, recent illness, recent injury EENTM: See HPI Respiratory: denies: cough, shortness of breath Cardiac: denies: chest pain, irregular heart rate, lightheadedness, palpitations Gastrointestinal/Abdominal: denies: abdominal pain, diarrhea, nausea, vomiting, blood streaked stools Genitourinary: denies: dysuria, frequency, hematuria, pain Musculoskeletal: denies: joint pain, muscle pain Skin: denies: lesions, rash, jaundice, bruising Neurological: denies: headache, numbness, paresthesia, tingling, dizziness, weakness Hematologic/Lymphatic: denies: blood clots, easy bleeding, easy bruising Immunologic/allergic: denies: HIV/AIDS, transplant EXAM: GENERAL: Well-appearing, well-nourished and in no acute distress. HEAD: Atraumatic, normocephalic. EYES: Pupils equal round and reactive to light, extraocular movements intact, sclera anicteric, conjunctiva are normal. ENT: TMs normal, nares patent, oropharynx clear without exudates. Moist mucous membranes. No significant lymphadenopathy NECK: Normal range of motion, supple without lymphadenopathy or JVD. LUNGS: Breath sounds clear to auscultation bilaterally and equal. No wheezes rales or rhonchi. HEART: Regular rate and rhythm without murmurs, rubs or gallops. ABDOMEN: Soft, nontender, normoactive bowel sounds. No guarding, no rebound. No masses appreciated. BACK: No CVA tenderness, no spinal tenderness, step-offs or deformities EXTREMITIES: Normal range of motion, no pitting or edema. No clubbing or cyanosis. NEUROLOGICAL: Cranial nerves II through XII grossly intact. Normal speech, normal gait. 5/5 strength, normal movement in all extremities, normal sensation PSYCH: Normal mood, normal affect. SKIN: Warm, dry, normal turgor, no visible rashes or lesions. Source: Patient Exam Limitations: No limitations - Personal History Current Tetanus/Diphtheria Vaccine: Yes Current Tetanus Diphtheria and Acellular Pertussis (TDAP): Yes Tetanus Vaccine Date: 03/2012 - Medical/Surgical History Hx Asthma: No Hx Chronic Respiratory Disease: No Hx Diabetes: No Hx Cardiac Disease: Yes Hx Renal Disease: No Hx Cirrhosis: No Hx Alcoholism: No Hx HIV/AIDS: No Hx Splenectomy or Spleen Trauma: No Other PMH: MEDICAL: HTN, HEART ATTACK X 3, cardiac cath x 3, STROKE x 4, CLINICAL DEPRESSION, hEART VALVE ISSUES, arthroscopic L knees surg 2000, sleep apnea w/ cpap; distended L ventricle; AAA; cellulitis, stomach ca - abd surg - Family History Significant Family History: No pertinent family hx - Social History Smoking Status: Never smoked Alcohol Use: None Constitutional: Initial Vital Signs Temperature (C) 37 C 10/15/17 11:38 Heart Rate 49 L 10/15/17 11:38 Respiratory Rate 18 10/15/17 11:38 Blood Pressure 144/81 H 10/15/17 11:38 O2 Sat (%) 95 10/15/17 11:38 O2 Delivery Mode Room Air Allergies/Adverse Reactions: corn [Doucette] Allergy (Severe, Verified 10/15/17 11:38) Anaphylaxis flaxseed [Flaxseed] Allergy (Severe, Verified 10/15/17 11:38) Anaphylaxis almond oil Allergy (Verified 10/15/17 11:38) amitriptyline Allergy (Verified 10/15/17 11:38) Coconut Allergy (Verified 10/15/17 11:38) Anaphylaxis nebivolol HCl [From Bystolic] Allergy (Verified 10/15/17 11:38) pistachio nut Allergy (Verified 10/15/17 11:38) shrimp Allergy (Verified 10/15/17 11:38) tree nut [Nuts] Allergy (Verified 10/15/17 11:38) buckwheat Allergy (Severe, Uncoded 10/15/17 11:38) Anaphylaxis cherries Allergy (Severe, Uncoded 10/15/17 11:38) Anaphylaxis clams Allergy (Severe, Uncoded 10/15/17 11:38) Anaphylaxis crab Allergy (Severe, Uncoded 10/15/17 11:38) Anaphylaxis lobster Allergy (Severe, Uncoded 10/15/17 11:38) Anaphylaxis oysters Allergy (Severe, Uncoded 10/15/17 11:38) Anaphylaxis rice Allergy (Severe, Uncoded 10/15/17 11:38) Anaphylaxis chocolate Allergy (Intermediate, Uncoded 10/15/17 11:38) Other-Enter Comments flax Allergy (Mild, Uncoded 10/15/17 11:38) grapes Allergy (Mild, Uncoded 10/15/17 11:38) migraines berger beans Allergy (Uncoded 10/15/17 11:38) pistachios Allergy (Uncoded 10/15/17 11:38) Home Medications: Medication Instructions Recorded Escitalopram Oxalate [Lexapro] 20 mg PO DAILY 03/14/14 Clopidogrel Bisulfate [Plavix (*)] 75 mg PO DAILY #30 tab 03/15/14 Nitroglycerin [Nitrostat 0.4 mg 0.4 mg SL Q5M PRN 04/30/16 (*)] Verapamil ER [Calan SR/ER 120MG 120 mg PO HS 04/30/16 (*)] Atorvastatin Calcium [Lipitor 40 80 mg PO DAILY@20 06/16/16 mg (*)] Metoprolol Succinate Xr [Toprol Xl 25 mg PO HS 06/16/16 25 mg (*)] Warfarin Sodium [Coumadin 5MG (*)] 10 mg PO SUTUWEFRSA 06/16/16 Warfarin Sodium [Coumadin 7.5MG 15 mg PO MOTH 06/16/16 (*)] Lasix 10/12/17 Potassium Chloride 10/12/17 Medical Decision Making ED Course/Re-evaluation: Patient is well-appearing and has a normal physical exam. He has stable vital signs. He was concerned that maybe his sore throat that began today was left over allergic reaction to the iodine. I think that this is very unlikely. I did offer to repeat some of the cardiac testing but he declines. We also offered antibiotics to treat what is likely an early pharyngitis. He declines. We discussed the fact that they are usually viral. I will give him a dose of Decadron for pain. He understands and agrees with this plan. We discussed indications for returning. Differential Diagnosis: Partial list of the Differential diagnosis considered include but were not limited to; pharyngitis, anxiety, allergic reaction and although unlikely based on the history and physical exam, I also considered acute coronary disease , PE dissection, CVA. I discussed these differential diagnoses and the plan with the patient as well as the usual and expected course. The patient understands that the diagnosis is provisional and that in medicine we are not always correct and that further workup is often warranted. Usual and customary warnings were given. All of the patient's questions were answered. The patient was instructed to return to the emergency department should the symptoms at all worsen or return, otherwise to followup with the physician as we discussed. - Data Points Medications Given: Discontinued Medications Dexamethasone (Decadron) 10 mg PO EDNOW ONE Stop: 10/15/17 13:35 Last Admin: 10/15/17 13:56 Dose: 10 mg Departure - Departure Disposition: Home, Routine, Self-Care Clinical Impression: Pharyngitis Qualifiers: Pharyngitis/tonsillitis etiology: unspecified etiology Qualified Code(s): J02.9 - Acute pharyngitis, unspecified Condition: Fair Instructions: Pharyngitis (ED) Referrals: Iván Beltran MD [Primary Care Provider] - As per Instructions
[2017-10-15 13:59] VITALS: BP 136/78
== END 2017-10-15 13:58 | disposition home or self-care (01) ==
DX: J02.9 Acute pharyngitis, unspecified (principal); I10 Essential (primary) hypertension; Z79.01 Long term (current) use of anticoagulants